=== PATIENT | female | born 1985 | race Caucasian/White ===

== ENCOUNTER 2021-02-21 14:10 | Outpatient (REF) | payer OTHER, SELFPAY | END 2021-02-21 14:11 | disposition home or self-care (01) | LOC: HO.LNP 14:10 | PROVIDERS: Visit Provider Hospitalist | DX: Z20.822 Contact with and (suspected) exposure to COVID-19 (principal); J45.901 Unspecified asthma with (acute) exacerbation | CPT/HCPCS: U0003; U0005 ==

== ENCOUNTER 2021-08-04 14:39 | Outpatient (REF) | payer OTHER, SELFPAY ==
--- NOTE | ~2021-08-04 | XR_ITS ---
EXAMINATION: XR CHEST CLINICAL INFORMATION: Covid 19 positive COMPARISON: Chest x-ray 04/22/2019 TECHNIQUE: 2 views of the chest were obtained. FINDINGS: No significant abnormality is noted involving the heart, lungs, mediastinum, bony thorax or soft tissues. XR/XR chest 2V IMPRESSION: Unremarkable examination.
== END 2021-08-04 14:40 | disposition home or self-care (01) ==
LOC: HO.XRAY 14:39
PROVIDERS: PCP Family Medicine; Visit Provider Hospitalist
DX: U07.1 COVID-19 (principal)
CPT/HCPCS: 71046

== ENCOUNTER 2021-09-01 08:53 | Outpatient (REF) | payer OTHER, SELFPAY ==
--- NOTE | ~2021-09-01 | XR_ITS ---
EXAMINATION: XR CHEST CLINICAL INFORMATION: Dyspnea COMPARISON: None TECHNIQUE: Frontal view of the chest was obtained. FINDINGS: No significant abnormality is noted involving the heart, lungs, mediastinum, bony thorax or soft tissues. XR/XR chest 1V IMPRESSION: Unremarkable chest examination.
== END 2021-09-01 08:54 | disposition home or self-care (01) ==
LOC: HO.XRAY 08:53
PROVIDERS: Visit Provider Hospitalist
DX: R06.09 Other forms of dyspnea (principal); U09.9 Post COVID-19 condition, unspecified; J45.40 Moderate persistent asthma, uncomplicated
CPT/HCPCS: 71045

== ENCOUNTER 2021-09-01 10:45 | Emergency (ER) | payer OTHER, SELFPAY ==
--- NOTE | ~2021-09-01 | CT_ITS ---
EXAMINATION: CT GI BLEED ABDOMEN PELVIS WITHOUT AND WITH CONTRAST. CLINICAL INFORMATION: Diarrhea and bright red blood per rectum COMPARISON: None TECHNIQUE: 5 minutes thin axial and reformatted 2 minutes thin sagittal coronal images of abdomen pelvis were obtained without and with following IV however mL Omnipaque 350. DLP 1983 FINDINGS: CTA: On contrast exam there is no extravasation seen within the colon on the small bowel loops to suspect any active source of GI bleed. Non-CTA: The lung bases are clear. The heart size is normal. The liver is normal size, contour and density. No focal lesion or intrahepatic ductal dilatation seen. The gallbladder has been surgically removed. Spleen: Unremarkable. Pancreas: Unremarkable. Adrenal glands: Unremarkable. Kidneys: Both kidney nephrograms are symmetrical in size and shape without any focal lesion. No radiopaque renal calculi or hydronephrosis seen. The abdominal aorta is of normal caliber. No abnormal size lymph nodes or mass seen. There are few scattered diverticula and scattered stool in the colon without diverticulitis or distention. The appendix is normal caliber. The small bowel loops are normal caliber. The stomach is nondistended. The abdominal wall appears unremarkable. Imaging through the pelvis reveals no contrast extravasation in the rectum or the sigmoid colon. The uterus is anteverted. There is a 1.7 cm left ovarian cyst. No free fluid seen. No abnormal pelvic mass or lymph nodes. Bone windows reveal no lytic or sclerotic process seen. CT/CT gi bleed abd pel wo/w con IMPRESSION: No contrast extravasation seen to suspect any source of GI bleed at this time. Minimal scattered colonic diverticulosis without diverticulitis. Small left ovarian cyst.
[2021-09-01 10:56] VITALS: BP 136/78; PULSE 81; RESP 18; TEMP 36.9; O2SAT 98; BMI 47.8
--- NOTE | 2021-09-01 14:17 | ED.GIBLEED ---
HPI - GI Bleed General Chief complaint: General Medical Stated complaint: rectal bleed Time Seen by Provider: 09/01/21 14:06 Source: patient Mode of arrival: ambulatory Limitations: no limitations History of Present Illness HPI Narrative: blood in bowl x 1 without BM, blood in bowl on toilet paper x 1 - 2 episodes today, no AC therapy, no ASA MD complaint: gross hematochezia Onset (ago): day(s) (this AM) Pain Consistency: colicky Severity: mild Relieving factors: none Exacerbating factors: bowel movement Context: other (has noted loose stools for 1+ month, nose bleeds, also mom has severe diverticulitis and aunt has Crohn's) Associated symptoms: abdominal pain and other bleeding (nose bleeds) Treatments Prior to Arrival: none Related Data Previous Rx's Medication Instructions Recorded albuterol sulfate 2.5 mg (3 mL) INHALATION Q4-6H PRN 08/26/20 30 Days #180 ml albuterol sulfate 90 mcg/actuation 2 puff INHALATION Q4-6H PRN 30 08/26/20 aerosol inhaler (Ventolin HFA) Days #8.5 g montelukast 10 mg tablet 10 mg PO DAILY 30 Days #30 tab 08/26/20 cyclobenzaprine 10 mg tablet 10 mg PO TID PRN 10 Days #30 tab 03/23/21 fluticasone propionate 230 2 puff INHALATION Q12H #12 g 07/21/21 mcg-salmeterol 21 mcg/actuation HFA inhaler (Advair HFA) prednisone 20 mg tablet 20 mg PO DAILY #12 tab 08/31/21 Allergies Allergy/AdvReac Type Severity Reaction Status Date / Time amoxicillin [Augmentin] Allergy Unknown Rash Verified 08/31/21 15:07 clavulanic acid [Augmentin] Allergy Unknown Rash Verified 08/31/21 15:07 gabapentin [From NEURONTIN] Allergy Unknown HIVES Verified 08/31/21 15:07 Review of Systems Review of Systems: Constitutional : No Weight loss, No Fever, No Chills ENT/Mouth : No sore throat, No Rhinorrhea Eyes: No Swelling, No Redness Cardiovascular : No Chest Pain, No SOB, NoEdema Respiratory : No Cough, No Sputum, No Wheezing Gastrointestinal : no Nausea,no Vomiting, positive Diarrhea, positive abdominal Pain, pos Hematochezia, No Melena Genitourinary : No Dysuria, No Urinary Frequency, No Hematuria, No Urgency Musculoskeletal : No joint pain, No Myalgias, No Joint Swelling Skin : No Skin Lesions, No rash Neuro : No Weakness, No Numbness, No Dizziness, No Headache Psych : No Anxiety/Panic, No Depression Heme/Lymph: No Bruising, No Lymphadenopathy Endocrine : No Polyuria, No Polydipsia All other systems reviewed and are negative. [facility] Past Medical History Medical History (Updated 09/01/21 @ 15:47 by Sue Quinonez DO) Asthma Post-COVID chronic dyspnea Surgical History History of cholecystectomy Family History Family History Father No problems noted. Mother No problems noted. Other Mental health disorder Substance use disorder Social History Social History Housing: House Alcohol intake: never Patient Tobacco Use Status: Never used Tobacco Second Hand Smoke Exposure: Yes Current occupational status: employed Physical Exam Vital Signs: Vital Signs: Last Vital Signs Temp 98.4 F 09/01/21 10:56 Pulse 81 09/01/21 10:56 Resp 18 09/01/21 10:56 BP 136/78 09/01/21 10:56 Pulse Ox 98 09/01/21 10:56 BMI result Body Mass Index 47.8 Appearance: Alert. Oriented X3. No acute distress. Eyes: Pupils equal, round and reactive to light. ENT: Pharynx normal. Neck: Normal inspection. Neck supple. CVS: Normal heart rate and rhythm. Pulses normal. Respiratory: No respiratory distress. Breath sounds normal. Abdomen: Soft and non-tender. Rectal: brb noted on digit, nonbleeding hemorrhoids seen, no mass felt Skin: Skin warm and dry. Normal skin color. Normal skin turgor. Extremities: No lower extremity edema. No calf ttp Neuro: Oriented X 3. No motor deficit. No sensory deficit. Course Course Course Narrative: labs stable, HR stable, BP stable - normal H/H and plts, pending CT read. signed out to Dr. العلي pending CT read. No bleeding while in ED. MDM - GI Bleed MDM Narrative Medical decision making narrative: 36 yo female with hx of asthma, long COVID symptoms, fam hx of Crohn's and sig diverticulitis in mom requiring colectomy comes in with c/o brbpr x 2 this AM without associated BM - no AC therapy or ASA use. At this time will need labs, CT scan for GIB protocol to look for mass/bleed/colitis. Dispo per results and findings. Lab Data Result diagrams: 09/01/21 14:22 09/01/21 14:22 Labs: Lab Results 09/01/21 09/01/21 09/01/21 Range/Units 14:22 14:22 14:22 WBC 10.9 H (4.8-10.8) X10*3/uL RBC 5.10 (4.20-5.50) X10*6/uL Hgb 13.3 (12.0-16.0) g/dl Hct 43.7 (37.0-47.0) % MCV 85.7 (80.0-98.0) fL MCH 26.1 L (27.0-33.0) pg MCHC 30.4 L (31.0-35.0) g/dl RDW 13.4 (11.0-16.0) % Plt Count 383 (160-400) X10*3/uL MPV 9.2 L (9.4-12.3) fL Immature Gran % (Auto) 0.4 (0.0-0.4) % Neut % (Auto) 59.5 (45-73) % Lymph % (Auto) 33.0 (20-40) % [place] % (Auto) 5.0 (2-11) % Eos % (Auto) 1.6 (0-4) % Baso % (Auto) 0.5 (0-2) % Lymph # (Auto) 3.6 (1.2-4.9) X10*3/uL [place] # (Auto) 0.6 (0.1-1.2) X10*3/uL Eos # (Auto) 0.2 (0.0-0.4) X10*3/uL Baso # (Auto) 0.1 (0.0-0.2) X10*3/uL Abs Immat Gran (auto) 0.04 H (0.00-0.03) X10*3/uL Absolute Neuts (auto) 6.5 (2.0-8.3) x10*3/uL Absolute Nucleated RBC 0.000 (0.0-0.012) X10*3/uL Nucleated RBC % (auto) 0.0 (0.0-0.2) /100WBC PT (9.9-13.0) SEC INR (0.9-1.1) Sodium (135-145) mmol/L Potassium (3.3-5.1) mmol/L Chloride (96-108) mmol/L Carbon Dioxide (22-29) mmol/L Anion Gap (12-20) BUN (9-16) mg/dL Creatinine (0.5-1.4) mg/dL Estim Creat Clear Calc Estimated GFR Random Glucose (60-115) mg/dL Calcium (8.4-10.2) mg/dL Magnesium (1.6-2.6) mg/dL Total Bilirubin (0.0-1.0) mg/dL Direct Bilirubin (0.0-0.5) mg/dL AST (5-31) U/L ALT (0-31) U/L Alkaline Phosphatase (39-117) U/L Total Protein (6.5-8.0) g/dL Albumin (3.5-5.0) g/dL Urine Color YELLOW Urine Appearance HAZY Urine pH 5.5 (5.0-8.0) Ur Specific [place] >= 1.030 H (1.005-1.025) Urine Protein NEG (NEG-TRACE) MG/DL Urine Glucose (UA) NEG (NEG) MG/DL Urine Ketones NEG (NEG) MG/DL Urine Blood 3+ H (NEG) Urine Nitrite NEG (NEG) Ur Leukocyte Esterase NEG (NEG) Urine RBC 5-9 H (0) /HPF Urine WBC 0 (0-4) /HPF Ur Squamous Epith Cells 2+ /LPF Urine Bacteria 1+ /LPF Urine Test NEGATIVE (NEGATIVE) Stool Occult Blood (NEGATIVE) 09/01/21 09/01/21 09/01/21 Range/Units 14:22 14:22 14:45 WBC (4.8-10.8) X10*3/uL RBC (4.20-5.50) X10*6/uL Hgb (12.0-16.0) g/dl Hct (37.0-47.0) % MCV (80.0-98.0) fL MCH (27.0-33.0) pg MCHC (31.0-35.0) g/dl RDW (11.0-16.0) % Plt Count (160-400) X10*3/uL MPV (9.4-12.3) fL Immature Gran % (Auto) (0.0-0.4) % Neut % (Auto) (45-73) % Lymph % (Auto) (20-40) % [place] % (Auto) (2-11) % Eos % (Auto) (0-4) % Baso % (Auto) (0-2) % Lymph # (Auto) (1.2-4.9) X10*3/uL [place] # (Auto) (0.1-1.2) X10*3/uL Eos # (Auto) (0.0-0.4) X10*3/uL Baso # (Auto) (0.0-0.2) X10*3/uL Abs Immat Gran (auto) (0.00-0.03) X10*3/uL Absolute Neuts (auto) (2.0-8.3) x10*3/uL Absolute Nucleated RBC (0.0-0.012) X10*3/uL Nucleated RBC % (auto) (0.0-0.2) /100WBC PT 11.8 (9.9-13.0) SEC INR 1.0 (0.9-1.1) Sodium 138 (135-145) mmol/L Potassium 4.0 (3.3-5.1) mmol/L Chloride 104 (96-108) mmol/L Carbon Dioxide 24 (22-29) mmol/L Anion Gap 14 (12-20) BUN 12 (9-16) mg/dL Creatinine 0.71 (0.5-1.4) mg/dL Estim Creat Clear Calc 136.3 Estimated GFR > 60 Random Glucose 97 (60-115) mg/dL Calcium 9.3 (8.4-10.2) mg/dL Magnesium 2.1 (1.6-2.6) mg/dL Total Bilirubin 0.4 (0.0-1.0) mg/dL Direct Bilirubin < 0.2 (0.0-0.5) mg/dL AST 18 (5-31) U/L ALT 17 (0-31) U/L Alkaline Phosphatase 69 (39-117) U/L Total Protein 7.5 (6.5-8.0) g/dL Albumin 4.0 (3.5-5.0) g/dL Urine Color Urine Appearance Urine pH (5.0-8.0) Ur Specific [place] (1.005-1.025) Urine Protein (NEG-TRACE) MG/DL Urine Glucose (UA) (NEG) MG/DL Urine Ketones (NEG) MG/DL Urine Blood (NEG) Urine Nitrite (NEG) Ur Leukocyte Esterase (NEG) Urine RBC (0) /HPF Urine WBC (0-4) /HPF Ur Squamous Epith Cells /LPF Urine Bacteria /LPF Urine Test (NEGATIVE) Stool Occult Blood POSITIVE (NEGATIVE) Discharge Plan Discharge Clinical Impression: Acute lower gastrointestinal bleeding Patient Disposition: Still a Patient Prescriptions: No Action cyclobenzaprine 10 mg tablet 10 mg PO TID PRN (Reason: muscle spasm) 10 Days Qty: 30 0RF albuterol sulfate [Ventolin HFA] 90 mcg/actuation HFA aerosol inhaler 2 puff inhalation Q4-6H PRN (Reason: Cough, wheeze) 30 Days Qty: 8.5 6RF montelukast 10 mg tablet 10 mg PO DAILY 30 Days Qty: 30 6RF albuterol sulfate 2.5 mg /3 mL (0.083 %) solution for nebulization 2.5 mg inhalation Q4-6H PRN (Reason: Cough, wheeze) 30 Days Qty: 180 0RF Advair HFA 230-21 mcg/actuation HFA aerosol inhaler 2 puff inhalation Q12H Qty: 12 0RF prednisone 20 mg tablet 20 mg PO DAILY Qty: 12 0RF Rx Instructions: take 3 for 2 days 2 for 2 days 1 for 2 days and stop
[2021-09-01 14:30] LABS: MANUAL DIFF FLAG NO
[2021-09-01 14:36] LABS: Basophils Absolute Auto 0.1 X10*3/uL (0.0-0.2); Basophils Percent Auto 0.5 % (0-2); Eosinophils Absolute Auto 0.2 X10*3/uL (0.0-0.4); Eosinophils Percent Auto 1.6 % (0-4); Hematocrit 43.7 % (37.0-47.0); Hemoglobin 13.3 g/dl (12.0-16.0); Imm Gran Abs Auto 0.04 X10*3/uL (0.00-0.03); Imm Gran Pct Auto 0.4 % (0.0-0.4); Lymphocytes Absolute Auto 3.6 X10*3/uL (1.2-4.9); Mean Corpuscular HGB Conc 30.4 g/dl (31.0-35.0); Mean Corpuscular Hemoglobin 26.1 pg (27.0-33.0); Mean Corpuscular Volume 85.7 fL (80.0-98.0); Mean Platelet Volume 9.2 fL (9.4-12.3); Monocytes Absolute Auto 0.6 X10*3/uL (0.1-1.2); Neutrophils Absolute Auto 6.5 x10*3/uL (2.0-8.3); Neutrophils Percent Auto 59.5 % (45-73); OBS1 POSITIVE (NEGATIVE); Platelet Count 383 X10*3/uL (160-400); Red Cell Distribution Width 13.4 % (11.0-16.0); White Blood Count 10.9 X10*3/uL (4.8-10.8)
[2021-09-01 14:37] LABS: OBS Int Ctl Valid YES
[2021-09-01 14:52] LABS: Alanine Aminotransferase 17 U/L (0-31); Alkaline Phosphatase 69 U/L (39-117); Anion Gap 14 (12-20); Aspartate Amino Transferase 18 U/L (5-31); Bilirubin Direct < 0.2 mg/dL (0.0-0.5); Bilirubin Total 0.4 mg/dL (0.0-1.0); Blood Urea Nitrogen 12 mg/dL (9-16); Calcium 9.3 mg/dL (8.4-10.2); Carbon Dioxide 24 mmol/L (22-29); Chloride 104 mmol/L (96-108); Creatinine Clr Calc Pharmacy 136.3; Estimated Glomerular Filt Rate > 60; Glucose Random 97 mg/dL (60-115); Magnesium 2.1 mg/dL (1.6-2.6); Sodium 138 mmol/L (135-145); Total Protein 7.5 g/dL (6.5-8.0)
[2021-09-01 14:55] LABS: Prothrombin Time 11.8 SEC (9.9-13.0)
[2021-09-01 15:08] LABS: Appearance Urine HAZY; Color Urine YELLOW; Glucose Urine UA NEG (NEG); Leukocyte Esterase Urine NEG (NEG); Nitrite Urine NEG (NEG); PH 5.5 (5.0-8.0); Specific Gravity - Urine >= 1.030 (1.005-1.025); UACC Culture Trigger NO; Urine Blood 3+ (NEG); Urine Ketones NEG (NEG); Urine Protein NEG (NEG-TRACE)
[2021-09-01 15:09] LABS: UPreg QC Valid YES; Urine Pregnancy NEGATIVE (NEGATIVE)
[2021-09-01 15:13] LABS: Bacteria Urine 1+ /LPF; Squamous Epithelial Cell Urine 2+ /LPF; WBC Urine 0 /HPF (0-4)
[2021-09-01] MEDS: iohexoL 350 MG/ML 100 ML INFUS..BTL IV (15:31)
[2021-09-01 17:01] VITALS: BP 132/88; PULSE 88; RESP 18; TEMP 36.6; O2SAT 97
== END 2021-09-01 17:02 | disposition home or self-care (01) ==
PROVIDERS: Emergency Medicine; Emergency Provider Emergency Medicine; PCP Hospitalist
DX: K62.5 Hemorrhage of anus and rectum (principal); R10.84 Generalized abdominal pain
CPT/HCPCS: 36415; 74178; 80048; 80076; 81001; 81025; 82272; 83735; 85025; 85610; 96360; 99283; 99284; Q9967

== ENCOUNTER 2021-09-07 15:31 | Outpatient (REF) | payer OTHER, SELFPAY | END 2021-09-07 15:32 | disposition home or self-care (01) | LOC: HO.LAB 15:31 | PROVIDERS: PCP Hospitalist; Visit Provider Internal Medicine Pulmonary Disease | DX: Z91.09 Other allergy status, other than to drugs and biological substances (principal); J45.909 Unspecified asthma, uncomplicated; U09.9 Post COVID-19 condition, unspecified | CPT/HCPCS: 36415; 82785; 85025; 86003; 99212 ==

== ENCOUNTER 2021-09-28 14:58 | Outpatient (REF) | payer OTHER, SELFPAY ==
--- NOTE | ~2021-09-28 | CT_ITS ---
EXAMINATION: CT CHEST WITHOUT CONTRAST CLINICAL INFORMATION: Post Covid 19 condition COMPARISON: None TECHNIQUE: Multidetector volumetric CT imaging of the chest was done. Axial MIP volume rendering provided. Sagittal and coronal reformatted images were obtained. This CT examination was performed using dose optimization techniques as appropriate, variously including the following: *Automated exposure control *Adjustment of mA and/or kV according to patient size (this includes techniques or standardized protocols for targeted exams where dose is matched to indication/reason for exam; i.e. extremities or head) *Use of iterative reconstruction technique DLP: 563 mGy-cm FINDINGS: MOTOR VEHICLES INSPECTOR: Unremarkable LUNGS: There is right upper lobe 0.25 cm nodule seen on image 19 series 3. MEDIASTINUM: The mediastinum is normal. PLEURA: There is no pleural effusion. No pleural mass or thickening. AXILLA: No lymphadenopathy. UPPER ABDOMEN: Gallbladder is surgically absent OSSEOUS STRUCTURES: Unremarkable. CT/CT chest wo con IMPRESSION: 0.25 cm right upper lobe nodule. Fleischner guidelines were followed.
== END 2021-09-28 14:59 | disposition home or self-care (01) ==
LOC: HO.CT 14:58
PROVIDERS: PCP Hospitalist; Visit Provider Internal Medicine Pulmonary Disease
DX: U09.9 Post COVID-19 condition, unspecified (principal)
CPT/HCPCS: 71250

== ENCOUNTER 2022-04-18 12:10 | Outpatient (REF) | payer OTHER, SELFPAY ==
--- NOTE | ~2022-04-18 | XR_ITS ---
EXAMINATION: XR CHEST CLINICAL INFORMATION: Acute upper respiratory infection. COMPARISON: September 01, 2021. TECHNIQUE: 2 views of the chest were obtained. FINDINGS: No significant abnormality is noted involving the heart, lungs, mediastinum, bony thorax or soft tissues. Status post cholecystectomy. XR/XR chest 2V IMPRESSION: Unremarkable examination.
== END 2022-04-18 12:11 | disposition home or self-care (01) ==
LOC: HO.HMGCX 12:10
PROVIDERS: PCP Hospitalist; Visit Provider Physician Assistant
DX: Z20.822 Contact with and (suspected) exposure to COVID-19 (principal); J06.9 Acute upper respiratory infection, unspecified
CPT/HCPCS: 0241U; 71046

== ENCOUNTER 2022-04-18 12:47 | Outpatient (REF) | payer OTHER, SELFPAY ==
[2022-04-18 16:49] LABS: Influenza A PCR NEGATIVE (Negative); Influenza B PCR NEGATIVE (Negative); Resp Syncy Virus RNA Qual PCR POSITIVE (Negative); SARS COV2 PCR INHOUSE NEGATIVE (Negative)
== END 2022-04-18 12:48 | disposition home or self-care (01) ==
LOC: HO.LAB 12:47
PROVIDERS: Visit Provider Physician Assistant
DX: Z13.89 Encounter for screening for other disorder (principal)
CPT/HCPCS: 0241U

== ENCOUNTER 2022-05-23 13:55 | Outpatient (REF) | payer OTHER, SELFPAY ==
[2022-05-24 12:02] LABS: Influenza A PCR NEGATIVE (Negative); Influenza B PCR NEGATIVE (Negative); Resp Syncy Virus RNA Qual PCR NEGATIVE (Negative); SARS COV2 PCR INHOUSE POSITIVE (Negative)
== END 2022-05-23 13:56 | disposition home or self-care (01) ==
LOC: HO.LAB 13:55
PROVIDERS: Visit Provider Nurse Practitioner Family
DX: R09.89 Other specified symptoms and signs involving the circulatory and respiratory systems (principal); Z20.822 Contact with and (suspected) exposure to COVID-19
CPT/HCPCS: 0241U

== ENCOUNTER 2023-05-08 10:10 | Outpatient (AMB) | payer OTHER, SELFPAY ==
[2023-05-08 11:07] VITALS: BP 126/70; PULSE 90; TEMP 37.2; O2SAT 98; BMI 47.2
--- NOTE | 2023-05-08 11:07 | MHC.OFFWIV ---
Intake Vital Signs 05/08/23 11:07 Height 5 ft 3 in Weight 266 lb 6 oz BMI 47.2 BP 126/70 Blood Pressure Location Rt brachial Position Sitting Pulse 90 Pulse Source Pulse Oximeter Temp 99.0 F Temp Source Oral Pulse Oximetry (%) 98 Intake Visit Reasons: EP Throat/ear concern/back pain (Masked) Intake Note: pt is here for c.o sore throat, ear discomfort, back pain Patient Tobacco Use Status: Never used Tobacco Allergies clavulanic acid [Augmentin] Allergy (Unknown, Verified 05/08/23 11:07) Rash gabapentin [From NEURONTIN] Allergy (Unknown, Verified 05/08/23 11:07) HIVES Do you need a note to return to daycare/school/sports/work: Yes HPI HPI Comments History of Present Illness Details Patient is a 37-year-old female in today for a sick visit. Patient states for the past 3 days she has had fever, sore throat, headache, and ear pain. 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 She has a past medical history significant for asthma. She has used [id number] Motrin with good effect. Denies shortness of breath, chest pain, nausea, vomiting, diarrhea or mastoid tenderness. Patient's head is normocephalic. Right TM is visible bulging and erythematous. Left ear is visible bulging and erythematous. Patient has sinus tenderness. Tonsils have erythema and are +2. Postnasal drip present. Patient has full range of motion of the neck the flexion, extension, and rotation. There is no lymphadenopathy. Lung sounds clear bilaterally. Heart sounds normal with S1 and S2, no rubs/gallops/murmurs. Patient likely has otitis media bilaterally. This is unlikely to be mastoiditis, or TM rupture. Patient will be prescribed Bactrim to be taken as directed. Patient had in office upper respiratory swab will get back to patient with results when they are made available. She has been instructed to use [id number] medicine like Tylenol and Motrin for symptom relief. Can use throat lozenges or hot tea for sore throat. She has been instructed to drink plenty of water. She has been educated on signs of worsening symptoms of when to return to the emergency room or when to present back to the walk-in clinic. Patient is agreeable to this plan. [facility] Medical History (Updated 05/08/23 @ 11:54 by KYE Crow) Bilateral otitis media Post-COVID chronic dyspnea Asthma Surgical History History of cholecystectomy Family History Father No problems noted. Mother No problems noted. Other Mental health disorder Substance use disorder Housing: House Alcohol intake: never Patient Tobacco Use Status: Never used Tobacco Second Hand Smoke Exposure: Yes Current occupational status: employed Review of Systems Const All systems reviewed & are unremarkable except as noted in HPI and below Reports headache(s) Eyes Denies blurry vision and Denies eye discharge ENT Reports Normal hearing present, Denies vertigo, Reports otalgia, Reports headache(s), Denies hearing loss, Denies nasal discharge and Denies neck pain Card Denies chest pain and Denies dyspnea Resp Denies chest congestion, Denies dyspnea and Denies wheezing GI Denies diarrhea, Denies nausea and Denies vomiting Musc Reports myalgias, Denies neck pain and Denies numbness Neuro Reports Normal hearing present, Denies confusion, Denies vertigo, Reports headache(s) and Denies numbness Psych Denies confusion Aller/Immun Denies wheezing Physical Exam Vital Signs: Last Vital Signs Temp 99.0 F 05/08/23 11:07 Pulse 90 05/08/23 11:07 BP 126/70 05/08/23 11:07 Pulse Ox 98 05/08/23 11:07 BMI result Body Mass Index 47.2 Patient's vital signs have been reviewed and are stable Const General: cooperative and no acute distress; No confusion Orientation/consciousness: patient oriented x3 and No confusion Limitations: no limitations HEENT Head: Yes normal to inspection and Yes normocephalic Ears: TM abnormal bulging, wth effusion and erythematous General nose exam: Normal external nose present Face and sinus: Yes sinus tenderness Throat: Yes abnormal tonsil (Tonsils +2.) and Yes cobblestoning Eyes General: appearance normal, both eyes and all related structures Neck Neck: Yes normal visual inspection, Yes full ROM, Yes no lymphadenopathy, Yes no meningeal signs and Yes trachea midline Resp Effort & Inspection: normal respiratory effort Auscultation: clear to auscultation bilaterally Cardio Rate: regular rate Rhythm: regular rhythm Heart sounds: S1 normal heart sound present and S2 normal heart sound present Neuro General: patient oriented x3, no meningeal signs and No confusion Cranial nerves: Yes Normal hearing present Results AMB Rapid Strep AMB Rapid Strep Negative Last Edit by Tobin Jones CMA on 05/08/23 11:25 Results Reviewed Results Reviewed: Laboratory Last Values Strep Scn Rapid Clinic Negative 05/08/23 11:24 Will call patient with swab results Assessment & Plan Assessment & Plan (1) Bilateral otitis media: Comment: Patient will be given Bactrim to be taken as prescribed. She has been educated to take the entire course of the medication and common side effects associated with the medication. She has also been instructed to use yjfl-kew-pebrliz medication like Tylenol and Motrin for symptom relief. She has been educated on signs of worsening symptoms of when to return to the walk-in or when to present to the emergency room. Patient is agreeable to this plan. Code(s): H66.93 - Otitis media, unspecified, bilateral Qualifiers: Otitis media type: unspecified Qualified Code(s): H66.93 - Otitis media, unspecified, bilateral Orders: Orders SARS-CoV2/FLU/RSV Today J06.9 - Acute upper respiratory infection, unspecified AMB Rapid Strep Screen Today Z13.9 - Encounter for screening, unspecified Coding Level of Care Code Est Pt Level 3 (35190) Diagnoses Bilateral otitis media, unspecified otitis media type H66.93 Otitis media type: unspecified Time Spent (min) 15
== END 2023-05-08 12:38 | disposition home or self-care (01) ==
PROVIDERS: PCP Hospitalist; Visit Provider Nurse Practitioner Primary Care
DX: J02.9 Acute pharyngitis, unspecified (principal)
CPT/HCPCS: 87880; 99213

== ENCOUNTER 2023-05-08 11:28 | Outpatient (REF) | payer OTHER, SELFPAY ==
[2023-05-08 15:29] LABS: Influenza A PCR NEGATIVE (Negative); Influenza B PCR NEGATIVE (Negative); Resp Syncy Virus RNA Qual PCR NEGATIVE (Negative); SARS COV2 PCR INHOUSE NEGATIVE (Negative)
== END 2023-05-08 11:29 | disposition home or self-care (01) ==
LOC: HO.LNP 11:28
PROVIDERS: Visit Provider Nurse Practitioner Primary Care
DX: Z11.52 Encounter for screening for COVID-19 (principal); J06.9 Acute upper respiratory infection, unspecified
CPT/HCPCS: 0241U

== ENCOUNTER 2023-05-24 08:00 | Outpatient (AMB) | payer OTHER, SELFPAY ==
--- NOTE | 2023-05-24 08:03 | MHC.PC.OV ---
Vital Signs 05/24/23 08:06 Height 5 ft 3 in Weight 271 lb BMI 48.0 BP 110/70 Blood Pressure Location Rt brachial Position Sitting Pulse 73 Pulse Source Pulse Oximeter Pulse Oximetry (%) 98 Oxygen Delivery Method Room Air Intake Visit Reasons: Est care/Requesting Annual PE Intake Note: Patient here for physical exam and would like to talk about back pain and elbow pain. Allergies clavulanic acid [Augmentin] Allergy (Unknown, Verified 05/24/23 08:14) Rash gabapentin [From NEURONTIN] Allergy (Unknown, Verified 05/24/23 08:14) HIVES Medication List - Last Reconciled 05/24/23 by KYE Crow Advair Diskus 500-50 mcg/dose (fluticasone propion-salmeterol) 1 inh inhalation BID 30 days NS albuterol sulfate 90 mcg/actuation (Ventolin HFA) 2 puffs inhalation Q4-6H PRN 30 days ipratropium-albuterol 0.5 mg-3 mg(2.5 mg base)/3 mL 3 mL inhalation Q4-6H PRN 30 days Tobacco use date assessed: 05/24/23 Dental Screening Dental Screen Date: 05/24/23 Did you have a dental visit in the last 12 months?: No Did you have a dental problem in the last 6 months where you did not have access to dental care?: No Was dental information given to patient?: Patient has dentist HPI HPI Comments History of Present Illness Details Patient is a 38-year-old female here today to establish care and have her annual physical exam. She has a past medical history significant for asthma which is well controlled. She has an established OBGYN whom she last saw 2 years ago, is due for another well-woman visit. She does not want this year's influenza vaccine or COVID booster. She is due for her mammogram. She has a chief complaint of lower back pain, and pain to her bilateral elbows. 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 She denies having any trauma to the area. She takes Tylenol or Motrin with good effect. Denies any tingling or numbness. [facility] Medical History (Updated 05/24/23 @ 09:37 by KYE Crow) Environmental allergies Asthma, mild intermittent, poorly controlled Cervicalgia Bilateral otitis media Post-COVID chronic dyspnea Asthma Surgical History History of cholecystectomy Family History (Updated 05/24/23 @ 08:21 by KYE Crow) Father Diabetes mellitus type 2 with complications Mother Diabetes mellitus type 2 with complications Other Mental health disorder Substance use disorder Social History Housing: House Alcohol intake: never Patient Tobacco Use Status: Never used Tobacco e-Cigarette/Vaping Use: Never Used Second Hand Smoke Exposure: Yes Current occupational status: employed Cognitive needs: No Hearing needs: No Vision needs: No Questionnaire PHQ-9 Over the last 2 weeks, how often have you been bothered by any of the following problems? 1. Little interest or pleasure in doing things: not at all 2. Feeling down, depressed, or hopeless: not at all 3. Trouble falling or staying asleep, or sleeping too much: several days 4. Feeling tired or having little energy: several days 5. Poor appetite or overeating: not at all 6. Feeling bad about yourself - or that you are a failure or have let yourself or your family down: not at all 7. Trouble concentrating on things, such as reading the newspaper or watching television: not at all 8. Moving or speaking so slowly that other people could have noticed. Or the opposite - being so fidgety or restless that you have been moving around a lot more than usual: not at all 9. Thoughts that you would be better off or of hurting yourself in some way: not at all Total score: 2 Depression Screening Interpretation: Negative Depression Screening Done: Yes 05290 - PHQ-9 Billing: Yes Source: Developed by Drs. Owen Fabian, Deloris White, Basil Poe and colleagues, with an educational ender from [employer]. Thrive Questionnaire Date Thrive assessed: 05/24/23 I am a: Patient What is your living situation today?: I have a place to live, but I am worried about losing it in the future Within the past 12 months, did the food you bought not last and you didn't have the money to get more?: Sometimes True Within the past 12 months, did you worry whether your food would run out before you got money to buy more?: Sometimes True Do you have trouble paying for medicines?: No Do you have trouble getting transportation to medical appointments?: No Do you have trouble paying your heating and electricity bill?: Yes Do you have trouble taking care of your child, family member or friend?: No Do you have trouble with day-to-day activities such as bathing, preparing meals, shopping, managing finances, etc.?: No Are you currently unemployed and looking for a job?: No Are you interested in more education?: No AUDIT C Alcohol Use Questionnaire (AUDIT-C) 1. How often do you have a drink containing alcohol?: Never 3. How often do you have six or more drinks on one occasion?: Never Total Score: 0 Score Reviewed/Action Taken: No ARLETH-7 AMB Questionnaire ARLETH-7 Date ARLETH - 7 assessed: 05/24/23 Source: Developed by Drs. Owen Fabian, Deloris White, Basil Poe and colleagues, with an educational ender from [employer]. ARLETH-7 Assessment Billing ARLETH-7 Assessment Tool: pt declined-do not bill Review of Systems Const Details: Constitutional : No Weight loss, No Fever, No Chills, No Fatigue, No Malaise ENT/Mouth : No sore throat, No Rhinorrhea Eyes: No Eye Pain, No Swelling, No Redness Cardiovascular : No Chest Pain, No SOB, No Dyspnea on Exertion, No Orthopnea, No Edema, No Palpitations Respiratory : No Cough, No Sputum, No Wheezing Gastrointestinal : No Nausea, No Vomiting, Occasional Diarrhea, No Constipation, No abdominal Pain, No Hematochezia, No Melena Genitourinary : No Dysuria, No Urinary Frequency, No Hematuria, Musculoskeletal : Admits intermittent lower back pain and Bilateral elbow pain. Skin : No Skin Lesions, No rash Neuro : No Weakness, No Numbness, No Dizziness, No Headache Psych : No Anxiety/Panic, No Depression Heme/Lymph: No Bruising, No Bleeding,No Lymphadenopathy Endocrine : No Polyuria, No Polydipsia All other systems reviewed and are negative Physical exam (Primary Care) Vital Signs: Last Vital Signs Pulse 73 05/24/23 08:06 BP 110/70 05/24/23 08:06 Pulse Ox 98 05/24/23 08:06 Oxygen Delivery Method Room Air 05/24/23 08:06 Care Plan Goal for BP management: Vital signs reviewed and are stable. BMI result Body Mass Index 48.0 Tobacco/Smoking Status: Tobacco use Status Tobacco use date assessed 05/24/23 05/24/23 08:10 Patient Tobacco Use Status Never used Tobacco 05/24/23 08:05 e-Cigarette/Vaping Use Never Used 05/24/23 08:10 Depression Screening Interpretation: Negative Const General: cooperative and no acute distress Orientation/consciousness: patient oriented x3 Limitations: no limitations HENMT Head: Yes normal to inspection and Yes normocephalic Ears: TM's normal bilaterally General nose exam: Normal external nose present and Normal septum present Face and sinus: Yes normal facial exam Mouth: Normal oral and palatal mucosa present Eyes Conjunctivae: conjunctivae normal Sclerae: sclerae normal Pupils: Equal, round and reactive pupils present EOM: EOMs intact bilaterally Direct Ophthalmoscopy: normal light reflex and no photophobia Neck Neck: Yes normal visual inspection, Yes full ROM and Yes no lymphadenopathy Thyroid: Thyroid normal Lymphatic: no lymphadenopathy noted Chest Other: Declined breast exam Resp Auscultation: clear to auscultation bilaterally Cardio Rate: regular rate Rhythm: regular rhythm Heart sounds: S1 normal heart sound present and S2 normal heart sound present GI Inspection: Yes normal to inspection Palpation (GI): nontender General: Yes no CVA tenderness and Yes deferred Back/Spine/Pelvis Back: no CVA tenderness Thoracic/Lumbar Spine: paraspinal muscle tenderness Skin General skin exam: no rashes or lesions noted Neuro General: patient oriented x3 and CN's II-XI intact bilaterally Cranial nerves: Yes Equal, round and reactive pupils present Gait exam (Neuro): Normal gait present Motor exam (neuro): 5/5 motor strength present throughout Deep tendon reflexes (DTR's): Right patellar reflex intensity grade: 2+ and Left patellar reflex intensity grade: 2+ Romberg Test: Negative Extrem Right upper extremity: full ROM and elbow/forearm Details: tenderness Location: of the medial epicondyle; no edema and joint enlargement noted Left upper extremity: full ROM and elbow/forearm Details: tenderness Location: of the medial epicondyle; no edema and joint enlargement noted Psych Attitude: cooperative Thought process: Normal thought process present Thought content: Normal thought content present Insight: Good insight present (Psych) Judgement: Good judgement present (Psych) Results Reviewed Results Reviewed: Will call patient with lab results. Assessment and Plan Assessment & Plan (1) Encounter for routine adult physical exam with abnormal findings: Comment: Will draw labs CBC, CMP, TSH, T4, lipid profile, vitamin D3, vitamin B6, vitamin B12 UA Code(s): Z00. - Encounter for general adult medical examination with abnormal findings (2) Lower back pain: Comment: Patient will have x-ray. Been instructed not to overuse the affected joint. She has been educated on proper ergonomic. Has been given meloxicam to help with pain and inflammation. Code(s): M54.50 - Low back pain, unspecified Qualifiers: Back pain laterality: bilateral Chronicity: unspecified Sciatica presence: unspecified whether sciatica present Qualified Code(s): M54.50 - Low back pain, unspecified (3) Medial epicondylitis of both elbows: Comment: Patient has been educated that this is often an overuse injury. That she should rest the affected joints, use ice pack. She can utilize elbow brace. Can use Tylenol or NSAID. Instructed not to combine NSAID with meloxicam. Educated on side effects of the medication. Code(s): M77.01 - Medial epicondylitis, right elbow; M77.02 - Medial epicondylitis, left elbow Plan: Will follow-up patient with x-ray results. Orders: Orders Lipid Panel Today Z00. - Encounter for general adult medical examination with abnormal findings Complete Blood Count Auto Diff Today Z00. - Encounter for general adult medical examination with abnormal findings UA CC w/rflx Micro + Cult Today Z00. - Encounter for general adult medical examination with abnormal findings Vitamin D 25-OH (D2 and D3) Today Z00. - Encounter for general adult medical examination with abnormal findings Vitamin B6 Today Z00. - Encounter for general adult medical examination with abnormal findings MM tomosynthesis screening BI Today Z00. - Encounter for general adult medical examination with abnormal findings XR lumbar spine 2-3V Today M54.50 - Low back pain, unspecified Comprehensive [place]. Panel Fast Today Z. - Encounter for general adult medical examination with abnormal findings TSH reflex Free T4 Today Z00. - Encounter for general adult medical examination with abnormal findings Vitamin B12 Today Z00.01 - Encounter for general adult medical examination with abnormal findings Medications: New meloxicam 15 mg PO DAILY 7 tabs 0RF Coding Level of Care Code Est Pt Level 3 (67373) Diagnoses Encounter for routine adult physical exam with abnormal findings Z00.01 Bilateral low back pain, unspecified chronicity, unspecified whether sciatica present M54.50 Back pain laterality: bilateral Chronicity: unspecified Sciatica presence: unspecified whether sciatica present Medial epicondylitis of both elbows M77.01; M77.02 Time Spent (min) 30
[2023-05-24 08:06] VITALS: BP 110/70; PULSE 73; O2SAT 98; BMI 48.0
== END 2023-05-24 08:39 | disposition home or self-care (01) ==
PROVIDERS: PCP Hospitalist; Visit Provider Nurse Practitioner Primary Care
DX: Z00.01 Encounter for general adult medical examination with abnormal findings (principal); M54.50 Low back pain, unspecified; M77.01 Medial epicondylitis, right elbow; M77.02 Medial epicondylitis, left elbow; Z04.3 Encounter for examination and observation following other accident
CPT/HCPCS: 99213; 99396

== ENCOUNTER 2023-05-24 08:43 | Outpatient (REF) | payer OTHER, SELFPAY ==
[2023-05-24 11:32] LABS: MANUAL DIFF FLAG NO
[2023-05-24 12:03] LABS: Basophils Absolute Auto 0.1 X10*3/uL (0.0-0.2); Basophils Percent Auto 0.6 % (0-2); Eosinophils Absolute Auto 0.2 X10*3/uL (0.0-0.4); Eosinophils Percent Auto 1.8 % (0-4); Hemoglobin 13.4 g/dl (12.0-16.0); Imm Gran Abs Auto 0.04 X10*3/uL (0.00-0.03); Imm Gran Pct Auto 0.4 % (0.0-0.4); Lymphocytes Absolute Auto 3.1 X10*3/uL (1.2-4.9); Lymphocytes Percent Auto 31.5 % (20-40); Mean Corpuscular HGB Conc 31.2 g/dl (31.0-35.0); Mean Corpuscular Hemoglobin 26.4 pg (27.0-33.0); Mean Corpuscular Volume 84.6 fL (80.0-98.0); Mean Platelet Volume 10.1 fL (9.4-12.3); Monocytes Absolute Auto 0.4 X10*3/uL (0.1-1.2); Monocytes Percent Auto 4.3 % (2-11); Neutrophils Percent Auto 61.4 % (45-73); Platelet Count 350 X10*3/uL (160-400); Red Blood Count 5.08 X10*6/uL (4.20-5.50); Red Cell Distribution Width 13.4 % (11.0-16.0); White Blood Count 9.8 X10*3/uL (4.8-10.8)
[2023-05-24 12:04] LABS: Appearance Urine Clear; Color Urine Yellow; Glucose Urine UA Negative (Negative); Leukocyte Esterase Urine Negative (Negative); Nitrite Urine Negative (Negative); UMIC TRIGGER UACC YES; Urine Blood Moderate (2+) (Negative); Urine Ketones Negative (Negative); Urine Protein Negative (Neg-Trace)
[2023-05-24 12:09] LABS: Bacteria Urine Trace (None Seen); Hyaline Casts Urine 0-2 /LPF (0-2); WBC Urine 0-5 /HPF (0-5)
[2023-05-24 12:28] LABS: Vitamin B12 336 pg/mL (200-900)
[2023-05-24 12:34] LABS: Alanine Aminotransferase 11 U/L (0-31); Albumin Level 3.7 g/dL (3.5-5.0); Alkaline Phosphatase 67 U/L (39-117); Anion Gap 14 (12-20); Aspartate Amino Transferase 14 U/L (5-31); Bilirubin Total 0.4 mg/dL (0.0-1.0); Blood Urea Nitrogen 14 mg/dL (9-16); Calcium 9.1 mg/dL (8.4-10.2); Carbon Dioxide 25 mmol/L (22-29); Chloride 102 mmol/L (96-108); Cholesterol 175 mg/dL (<200); Estimated Glomerular Filt Rate > 60; Glucose Fasting 93 mg/dL (60-99); HDL Cholesterol 63 mg/dL (>40); LDL Cholesterol Calculated 99 mg/dL (<100); Potassium 3.9 mmol/L (3.3-5.1); Sodium 137 mmol/L (135-145); Total Protein 7.2 g/dL (6.5-8.0); Triglycerides 66 mg/dL (<150)
[2023-05-24 12:36] LABS: TSH reflex Free T4 1.97 uIU/mL (0.32-4.0)
[2023-05-28 12:24] LABS: Vitamin B6 4.2 ng/mL (2.1-21.7)
[2023-05-28 15:09] LABS: Vitamin D 25-OH, D2 <4 ng/mL; Vitamin D 25-OH, D3 16 ng/mL; Vitamin D 25-OH, Total 16 ng/mL (30-100)
== END 2023-05-24 08:44 | disposition home or self-care (01) ==
LOC: HO.HMGCLDS 08:43
PROVIDERS: PCP Nurse Practitioner Primary Care; Visit Provider Nurse Practitioner Primary Care
DX: Z00.01 Encounter for general adult medical examination with abnormal findings (principal)
CPT/HCPCS: 36415; 80053; 80061; 81001; 81003; 82306; 82607; 84207; 84443; 85025

== ENCOUNTER 2023-06-20 11:07 | Outpatient (AMB) | payer OTHER, SELFPAY ==
[2023-06-20 11:59] VITALS: BP 110/70; PULSE 84; TEMP 36.9; O2SAT 100; BMI 47.5
--- NOTE | 2023-06-20 11:59 | A.OFFPC_ITS ---
Vital Signs 06/20/23 11:59 Height 5 ft 3 in Weight 268 lb 2 oz BMI 47.5 BP 110/70 Blood Pressure Location Lt brachial Position Sitting Pulse 84 Pulse Source Pulse Oximeter Temp 98.4 F Temp Source Oral Pulse Oximetry (%) 100 Oxygen Delivery Method Room Air Intake Visit Reasons: correction cold symptoms Intake Note: Pt has keno terminal operator covid Lung and she started with the cold and cough Sat she has 1 neg covid test 1 positive and 1 invalid test pt also has pink she was turned away from the walk-in yesterday Allergies clavulanic acid [Augmentin] Allergy (Unknown, Verified 06/20/23 16:13) Rash gabapentin [From NEURONTIN] Allergy (Unknown, Verified 06/20/23 16:13) HIVES Medication List - Last Reconciled 06/20/23 by KYE Crow Advair Diskus 500-50 mcg/dose (fluticasone propion-salmeterol) 1 inh inhalation BID 30 days NS albuterol sulfate 90 mcg/actuation (Ventolin HFA) 2 puffs inhalation Q4-6H PRN 30 days azithromycin For 250 mg dose pack: take 500 mg today (day 1), then 250 mg for 4 days (days 2-5) PO benzonatate 100 mg PO BID PRN ipratropium-albuterol 0.5 mg-3 mg(2.5 mg base)/3 mL 3 mL inhalation Q4-6H PRN 30 days meloxicam 15 mg PO DAILY ofloxacin 0.3% 2 drps ophthalmic (eye) QID prednisone 20 mg PO BID Tobacco use date assessed: 06/20/23 Dental Screening Dental Screen Date: 06/20/23 Did you have a dental visit in the last 12 months?: No Did you have a dental problem in the last 6 months where you did not have access to dental care?: No Was dental information given to patient?: Patient has dentist HPI HPI Comments History of Present Illness Details Patient is a 38-year-old female in today for a problem visit. She states that over the past week she has developed symptoms of headache, sore throat, cough, congestion, and has been expectorating green mucus. Denies fever, shortness of breath, chest pain, numbness, dizziness, constipation. She has had one day with 3-4 bouts of diarrhea, which has since resolved. She has a past medical history significant for asthma. 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 She states she had been at home COVID test which was positive, however the test at work came back negative. She is also offering complaints of left eye redness, discharge, itchiness x4 days. Denies dizziness, or any vision changes. Denies any trauma to the area. Patient states that several of the children at daycare facility have pinkeye. She has not had pinkeye in a while but states that it feels similar. [facility] Medical History Urinary tract infection Environmental allergies Asthma, mild intermittent, poorly controlled Cervicalgia Bilateral otitis media Post-COVID chronic dyspnea Asthma Surgical History History of cholecystectomy Family History Father Diabetes mellitus type 2 with complications Mother Diabetes mellitus type 2 with complications Other Mental health disorder Substance use disorder Social History Housing: House Alcohol intake: never Patient Tobacco Use Status: Never used Tobacco e-Cigarette/Vaping Use: Never Used Second Hand Smoke Exposure: Yes Current occupational status: employed Cognitive needs: No Hearing needs: No Vision needs: No Questionnaire Thrive Questionnaire Date Thrive assessed: 05/24/23 ARLETH-7 AMB Questionnaire ARLETH-7 Date ARLETH - 7 assessed: 05/24/23 Source: Developed by Drs. Owen Fabian, Deloris White, Basil Poe and colleagues, with an educational ender from [employer]. Review of Systems Const Details: Constitutional : No Weight loss, No Fever, No Chills, Admits some Fatigue, No Malaise ENT/Mouth : Admits sore throat, No Rhinorrhea. TM intact and pearly benavides. Eyes: Admits slight Eye Pain, No Swelling, Admits Redness and discharge. Cardiovascular : No Chest Pain, No SOB, No Dyspnea on Exertion, No Orthopnea, No Edema, No Palpitations Respiratory : No Cough, No Sputum, No Wheezing Gastrointestinal : No Nausea, No Vomiting, No Diarrhea, No Constipation, No abdominal Pain, No Hematochezia, No Melena Neuro : No Weakness, No Numbness, No Dizziness, No Headache Psych : No Anxiety/Panic, No Depression All other systems reviewed and are negative Physical exam (Primary Care) Vital Signs: Last Vital Signs Temp 98.4 F 06/20/23 11:59 Pulse 84 06/20/23 11:59 BP 110/70 06/20/23 11:59 Pulse Ox 100 06/20/23 11:59 Oxygen Delivery Method Room Air 06/20/23 11:59 Care Plan Goal for BP management: Patient's vital signs have been reviewed and are stable. BMI result Body Mass Index 47.5 Tobacco/Smoking Status: Tobacco use Status Tobacco use date assessed 06/20/23 06/20/23 12:09 Patient Tobacco Use Status Never used Tobacco 06/20/23 11:59 e-Cigarette/Vaping Use Never Used 06/20/23 11:59 Thrive Assessment: Date of Thrive Assessment Date Thrive assessed 05/24/23 06/20/23 11:59 Const Other: Appearance: Alert.? Oriented X3.? No acute distress.? Eyes: Pupils equal, round and reactive to light.?Left eye erythema, crusting on lower lid and eyelashes. ENT: Pharynx erythema. TM intact and pearly benavides. Neck: Normal inspection.? Neck supple.?Full ROM. CVS: Normal heart rate and rhythm.? Pulses normal.? Respiratory: No respiratory distress.? Breath sounds normal.? Abdomen: Soft and nontender.? Skin: Skin warm and dry.? Normal skin color.? Normal skin turgor.? Neuro: Oriented X 3.? No motor deficit.? No sensory deficit. CN 2-12 intact Results AMB Rapid Strep AMB Rapid Strep Negative Last Edit by TITA Tamez on 06/20/23 12:32 Results Reviewed Results Reviewed: Laboratory Last Values Strep Scn Rapid [facility] Negative 06/20/23 12:31 Assessment and Plan Assessment & Plan (1) Upper respiratory infection: Comment: Patient had in office upper respiratory swab. Will give prednisone, benzonatate, azithromycin to be taken as directed. Patient has been educated on signs of worsening symptoms and when to report back to the office or when to present to the emergency room. Patient states she understands this plan. Code(s): J06.9 - Acute upper respiratory infection, unspecified Qualifiers: URI type: unspecified URI Qualified Code(s): J06.9 - Acute upper respiratory infection, unspecified Plan: Patient also will have referral to in [place] allergy and immunology. (2) Conjunctivitis of left eye: Comment: Patient will be given ofloxacin to be taken as directed. She has been educated on signs of worsening symptoms and when to report back to the office or when to present to the emergency room. Patient states she understands the plan Code(s): H10.9 - Unspecified conjunctivitis Qualifiers: Conjunctivitis type: acute Acute conjunctivitis type: unspecified Qualified Code(s): H10.32 - Unspecified acute conjunctivitis, left eye Plan: Take your medications as prescribed. If you were prescribed antibiotics today, it is important that you take your medication to their entirety, do not skip any doses, do not finish them early. Follow-up with your primary care provider this week. Return to the emergency department with new or worsening symptoms. Such as fevers, chills, chest pain, shortness of breath, nausea, vomiting, dizziness, headache, vision changes, lethargy In case of emergency call 911 Plan Follow-up in 3-4 months. Orders: Orders SARS-CoV2/FLU/RSV Today J06.9 - Acute upper respiratory infection, unspecified Complete Blood Count Auto Diff Today Z13.0 - Encounter for screening for diseases of the blood and blood-forming organs and certain disorders involving the immune mechanism Comprehensive Met. Panel Today Z13.0 - Encounter for screening for diseases of the blood and blood-forming organs and certain disorders involving the immune mechanism AMB Rapid Strep Screen Today Z13.9 - Encounter for screening, unspecified Referrals Allergy & Immunology Referral J45.20 - Mild intermittent asthma, uncomplicated Medications: New prednisone 20 mg PO BID 10 tabs 0RF benzonatate 100 mg PO BID PRN 20 caps 0RF cough ofloxacin 0.3% 2 drps ophthalmic (eye) QID 5 mL 0RF azithromycin For 250 mg dose pack: take 500 mg today (day 1), then 250 mg for 4 days (days 2-5) PO 6 tabs 0RF Coding Level of Care Code Est Pt Level 3 (01726) Diagnoses Upper respiratory tract infection, unspecified type J06.9 URI type: unspecified URI Acute conjunctivitis of left eye, unspecified acute conjunctivitis type H10.32 Conjunctivitis type: acute Acute conjunctivitis type: unspecified Time Spent (min) 30
== END 2023-06-20 15:18 | disposition home or self-care (01) ==
PROVIDERS: PCP Nurse Practitioner Primary Care; Visit Provider Nurse Practitioner Primary Care
DX: J02.9 Acute pharyngitis, unspecified (principal)
CPT/HCPCS: 87880; 99213

== ENCOUNTER 2023-06-20 12:33 | Outpatient (REF) | payer OTHER, SELFPAY ==
[2023-06-20 16:07] LABS: MANUAL DIFF FLAG NO
[2023-06-20 16:22] LABS: Basophils Absolute Auto 0.1 X10*3/uL (0.0-0.2); Basophils Percent Auto 0.5 % (0-2); Eosinophils Absolute Auto 0.2 X10*3/uL (0.0-0.4); Eosinophils Percent Auto 2.1 % (0-4); Hematocrit 45.5 % (37.0-47.0); Hemoglobin 14.2 g/dl (12.0-16.0); Imm Gran Abs Auto 0.04 X10*3/uL (0.00-0.03); Imm Gran Pct Auto 0.4 % (0.0-0.4); Lymphocytes Absolute Auto 3.8 X10*3/uL (1.2-4.9); Lymphocytes Percent Auto 34.9 % (20-40); Mean Corpuscular HGB Conc 31.2 g/dl (31.0-35.0); Mean Corpuscular Hemoglobin 26.3 pg (27.0-33.0); Mean Corpuscular Volume 84.3 fL (80.0-98.0); Mean Platelet Volume 9.9 fL (9.4-12.3); Monocytes Absolute Auto 0.5 X10*3/uL (0.1-1.2); Monocytes Percent Auto 4.3 % (2-11); Neutrophils Absolute Auto 6.4 x10*3/uL (2.0-8.3); Neutrophils Percent Auto 57.8 % (45-73); Platelet Count 397 X10*3/uL (160-400); Red Cell Distribution Width 13.4 % (11.0-16.0)
[2023-06-20 17:08] LABS: Influenza A PCR NEGATIVE (Negative); Influenza B PCR NEGATIVE (Negative); Resp Syncy Virus RNA Qual PCR NEGATIVE (Negative); SARS COV2 PCR INHOUSE NEGATIVE (Negative)
== END 2023-06-20 12:34 | disposition home or self-care (01) ==
LOC: HO.HMGCLDS 12:33
PROVIDERS: PCP Nurse Practitioner Primary Care; Visit Provider Nurse Practitioner Primary Care
DX: J06.9 Acute upper respiratory infection, unspecified (principal); Z13.0 Encounter for screening for diseases of the blood and blood-forming organs and certain disorders involving the immune mechanism
CPT/HCPCS: 0241U; 36415; 85025

== ENCOUNTER 2023-07-03 10:15 | Outpatient (AMB) | payer OTHER, SELFPAY ==
[2023-07-03 11:15] VITALS: BP 112/68; PULSE 112; TEMP 37.7; O2SAT 96
--- NOTE | 2023-07-03 11:15 | AM.OFFWIN_ITS ---
Intake Vital Signs 07/03/23 11:15 Height 5 ft 3 in BP 112/68 Blood Pressure Location Lt brachial Position Sitting Pulse 112 H Pulse Source Pulse Oximeter Temp 99.8 F Temp Source Oral Pulse Oximetry (%) 96 Oxygen Delivery Method Room Air Intake Visit Reasons: EP Cough, Fever, Vomiting [id number] Intake Note: pt is here for c.o cough, fever, vomiting, and states her daughter tested positive for flu type A on Sunday. patient states she is high risk and wants to be evaluated. Patient Tobacco Use Status: Never used Tobacco Allergies clavulanic acid [Augmentin] Allergy (Unknown, Verified 07/03/23 11:16) Rash gabapentin [From NEURONTIN] Allergy (Unknown, Verified 07/03/23 11:16) HIVES Do you need a note to return to daycare/school/sports/work: Yes HPI HPI Comments History of Present Illness Details Patient is 38-year-old female in today for sick visit. She was last seen in the walk-in 13 days ago for upper respiratory infection and conjunctivitis. She is in the walk-in clinic today with a chief complaint of fever, vomiting, reproducible chest pain, dyspnea on exertion, cough, and sore throat. Patient has past medical history significant for asthma. She states that she took and at home test that was positive for influenza type A. His use [id number] medications with little effect. Verified in office today patient has allergy to Augmentin, but is able to take amoxicillin. [facility] Medical History Urinary tract infection Environmental allergies Asthma, mild intermittent, poorly controlled Cervicalgia Bilateral otitis media Post-COVID chronic dyspnea Asthma Surgical History History of cholecystectomy Family History Father Diabetes mellitus type 2 with complications Mother Diabetes mellitus type 2 with complications Other Mental health disorder Substance use disorder Social History Housing: House Alcohol intake: never Patient Tobacco Use Status: Never used Tobacco e-Cigarette/Vaping Use: Never Used Second Hand Smoke Exposure: Yes Current occupational status: employed Cognitive needs: No Hearing needs: No Vision needs: No Review of Systems Const Details: Constitutional : No Weight loss, Admits subjective Fever, Admits Chills, Admits Fatigue, Admits Malaise ENT/Mouth : Admits sore throat, No Rhinorrhea. No ear fullness. Eyes: No Eye Pain, No Swelling, No Redness Cardiovascular : No Chest Pain, No SOB, Admits Dyspnea on Exertion after coughing fits, No Orthopnea, No Edema, No Palpitations Respiratory : Admits Cough, No Sputum, Admits Wheezing Gastrointestinal : No Nausea, Admits Vomiting once, No Diarrhea, No Constipation, No abdominal Pain, No Hematochezia, No Melena Genitourinary : No Dysuria, No Urinary Frequency, No Hematuria, Musculoskeletal : No joint pain, No Myalgias, No Joint Swelling Skin : No Skin Lesions, No rash Neuro : No Weakness, No Numbness, No Dizziness, No Headache Psych : No Anxiety/Panic, No Depression Heme/Lymph: No Bruising, No Bleeding,No Lymphadenopathy Endocrine : No Polyuria, No Polydipsia All other systems reviewed and are negative Physical Exam Vital Signs: Last Vital Signs Temp 99.8 F 07/03/23 11:15 Pulse 112 H 07/03/23 11:15 BP 112/68 07/03/23 11:15 Pulse Ox 96 07/03/23 11:15 Oxygen Delivery Method Room Air 07/03/23 11:15 On physical exam patient's pulse was 105 beats per minute. Patient has not utilize Tylenol for low-grade fever. Const Other: Appearance: Alert.? Oriented X3.? No acute distress.? Head: Normocephalic. Eyes: Pupils equal, round and reactive to light. TM intact and pearly benavides. ? ENT: Pharynx erythema.?Septum Midline. Neck: Normal inspection.? Neck supple.?Full ROM CVS: Normal heart rate and rhythm.? Pulses normal.? Respiratory: No respiratory distress.? Bilateral wheeze of upper airways. ? Abdomen: Soft and nontender.? Skin: Skin warm and dry.? Normal skin color.? Normal skin turgor.? Neuro: Oriented X 3.? No motor deficit.? No sensory deficit. CN 2-12 intact Assessment & Plan Assessment & Plan (1) Upper respiratory infection: Comment: Patient had in office chest x-ray, will wait for radiologist to read for official results. Patient likely has upper respiratory infection that is progressing in to pneumonia. Will give prednisone, doxycycline, amoxicillin. Patient has been educated on the side effects of these medications. Patient has been educated on signs of worsening symptoms and when to report to the walk-in or when to present to the emergency room. Will also refill patient's inhalers. Code(s): J06.9 - Acute upper respiratory infection, unspecified Qualifiers: URI type: unspecified URI Qualified Code(s): J06.9 - Acute upper respiratory infection, unspecified Plan: Take your medications as prescribed. If you were prescribed antibiotics today, it is important that you take your medication to their entirety, do not skip any doses, do not finish them early. Follow-up with your primary care provider this week. Return to the emergency department with new or worsening symptoms. Such as fevers, chills, chest pain, shortness of breath, nausea, vomiting, dizziness, headache, vision changes, lethargy In case of emergency call 911 Plan Follow-up with PCP Orders: Orders XR chest 2V Today Z13.83 - Encounter for screening for respiratory disorder NEC Complete Blood Count Auto Diff Today Z13.0 - Encounter for screening for diseases of the blood and blood-forming organs and certain disorders involving the immune mechanism Comprehensive Met. Panel Today Z91.89 - Other specified personal risk factors, not elsewhere classified Medications: New amoxicillin 875 mg PO Q12H 20 tabs 0RF doxycycline hyclate 100 mg PO BID 20 caps 0RF prednisone 50 mg PO DAILY 5 tabs 0RF Refilled Advair Diskus 500-50 mcg/dose (fluticasone propion-salmeterol) 1 inh inhalation BID 30 days 1 ea 6RF NS J45.909 - Unspecified asthma, uncomplicated albuterol sulfate 90 mcg/actuation (Ventolin HFA) 2 puffs inhalation Q4-6H 30 days PRN 8.5 grams 6RF Cough, wheeze J45.40 - Moderate persistent asthma, uncomplicated ipratropium-albuterol 0.5 mg-3 mg(2.5 mg base)/3 mL 3 mL inhalation Q4-6H 30 days PRN 270 mL 6RF wheezing J45.909 - Unspecified asthma, uncomplicated Coding Level of Care Code Est Pt Level 3 (78711) Diagnoses Upper respiratory tract infection, unspecified type J06.9 URI type: unspecified URI Time Spent (min) 30
== END 2023-07-03 13:12 | disposition home or self-care (01) ==
PROVIDERS: PCP Nurse Practitioner Primary Care; Visit Provider Nurse Practitioner Primary Care
DX: J06.9 Acute upper respiratory infection, unspecified (principal); J45.909 Unspecified asthma, uncomplicated
CPT/HCPCS: 99213

== ENCOUNTER 2023-07-03 11:35 | Outpatient (REF) | payer OTHER, SELFPAY ==
--- NOTE | ~2023-07-03 | XR_ITS ---
EXAMINATION: XR CHEST 2 VIEW CLINICAL INFORMATION: Screening for respiratory disorder COMPARISON: 04/18/2022 TECHNIQUE: PA and lateral views of the chest obtained. FINDINGS: The lungs are clear. There are no pleural effusions. The cardiomediastinal silhouette is normal. XR/XR chest 2V IMPRESSION: No acute cardiopulmonary disease.
[2023-07-03 13:29] LABS: MANUAL DIFF FLAG NO
[2023-07-03 13:34] LABS: Basophils Absolute Auto 0.1 X10*3/uL (0.0-0.2); Basophils Percent Auto 1.3 % (0-2); Eosinophils Percent Auto 0.3 % (0-4); Hematocrit 44.6 % (37.0-47.0); Imm Gran Abs Auto 0.02 X10*3/uL (0.00-0.03); Imm Gran Pct Auto 0.3 % (0.0-0.4); Lymphocytes Percent Auto 32.4 % (20-40); Mean Corpuscular HGB Conc 31.4 g/dl (31.0-35.0); Mean Corpuscular Hemoglobin 26.6 pg (27.0-33.0); Mean Corpuscular Volume 84.6 fL (80.0-98.0); Mean Platelet Volume 9.6 fL (9.4-12.3); Monocytes Absolute Auto 0.5 X10*3/uL (0.1-1.2); Monocytes Percent Auto 8.8 % (2-11); Neutrophils Absolute Auto 3.4 x10*3/uL (2.0-8.3); Neutrophils Percent Auto 56.9 % (45-73); Platelet Count 307 X10*3/uL (160-400); Red Blood Count 5.27 X10*6/uL (4.20-5.50); Red Cell Distribution Width 13.8 % (11.0-16.0)
[2023-07-03 15:06] LABS: Alanine Aminotransferase 18 U/L (0-31); Albumin Level 3.6 g/dL (3.5-5.0); Alkaline Phosphatase 66 U/L (39-117); Anion Gap 16 (12-20); Aspartate Amino Transferase 18 U/L (5-31); Bilirubin Total 0.3 mg/dL (0.0-1.0); Blood Urea Nitrogen 12 mg/dL (9-16); Calcium 8.6 mg/dL (8.4-10.2); Carbon Dioxide 23 mmol/L (22-29); Chloride 101 mmol/L (96-108); Estimated Glomerular Filt Rate > 60; Glucose Random 126 mg/dL (60-115); Potassium 3.5 mmol/L (3.3-5.1); Sodium 136 mmol/L (135-145); Total Protein 7.2 g/dL (6.5-8.0)
== END 2023-07-03 11:36 | disposition home or self-care (01) ==
LOC: HO.HMGCX 11:35
PROVIDERS: PCP Nurse Practitioner Primary Care; Visit Provider Nurse Practitioner Primary Care
DX: Z13.83 Encounter for screening for respiratory disorder NEC (principal); Z13.0 Encounter for screening for diseases of the blood and blood-forming organs and certain disorders involving the immune mechanism
CPT/HCPCS: 36415; 71046; 80053; 85025

== ENCOUNTER 2023-07-06 10:25 | Outpatient (AMB) | payer OTHER, SELFPAY ==
--- NOTE | 2023-07-06 10:35 | MHC.PC.OV ---
Vital Signs 07/06/23 10:36 Height 5 ft 3 in Weight 271 lb 8 oz BMI 48.1 BP 106/70 Blood Pressure Location Rt brachial Position Sitting Pulse 89 Pulse Source Pulse Oximeter Pulse Oximetry (%) 98 Oxygen Delivery Method Room Air Intake Visit Reasons: Follow up Walk-in Intake Note: Pt is here follow from the walk-in and is still has resp issue coughing Allergies clavulanic acid [Augmentin] Allergy (Unknown, Verified 07/06/23 11:13) Rash gabapentin [From NEURONTIN] Allergy (Unknown, Verified 07/06/23 11:13) HIVES Medication List - Last Reconciled 07/06/23 by KYE Crow albuterol sulfate 90 mcg/actuation (Ventolin HFA) 2 puffs inhalation Q4-6H PRN 30 days amoxicillin 875 mg PO Q12H benzonatate 200 mg PO BID PRN doxycycline hyclate 100 mg PO BID famotidine 20 mg PO DAILY fluticasone furoate-vilanterol 200-25 mcg/dose (Breo Ellipta) 1 inh inhalation Q24H ipratropium-albuterol 0.5 mg-3 mg(2.5 mg base)/3 mL 3 mL inhalation Q4-6H PRN 30 days prednisone 50 mg PO DAILY Tobacco use date assessed: 07/06/23 Dental Screening Dental Screen Date: 07/06/23 Did you have a dental visit in the last 12 months?: No Did you have a dental problem in the last 6 months where you did not have access to dental care?: No Was dental information given to patient?: Patient has dentist HPI HPI Comments History of Present Illness Details This is a 38-year-old female in for follow-up from walk-in visit. Patient was seen 3 days prior for upper respiratory infection, symptoms include fever, cough, chest wall pain, sore throat. She was treated for pneumonia and given prednisone and antibiotics. The appointment today the patient states that she feels better although the cough is still lingering. She states that she has to use her albuterol inhaler 2 times per day, and that the prednisone helps a little. The cough is worse at night, and often interrupts her sleep. Patient does not currently have a amplifier mechanic, will refer. Patient also has a referral out for allergy and immunology. Patient denies chest pain, numbness, shortness of breath, dizziness, headache, nausea, vomiting, fever. [facility] Medical History Urinary tract infection Environmental allergies Asthma, mild intermittent, poorly controlled Cervicalgia Bilateral otitis media Post-COVID chronic dyspnea Asthma Surgical History History of cholecystectomy Family History Father Diabetes mellitus type 2 with complications Mother Diabetes mellitus type 2 with complications Other Mental health disorder Substance use disorder Social History Housing: House Alcohol intake: never Patient Tobacco Use Status: Never used Tobacco e-Cigarette/Vaping Use: Never Used Second Hand Smoke Exposure: Yes Current occupational status: employed Cognitive needs: No Hearing needs: No Vision needs: No Questionnaire Thrive Questionnaire Date Thrive assessed: 05/24/23 ARLETH-7 AMB Questionnaire ARLETH-7 Date ARLETH - 7 assessed: 05/24/23 Source: Developed by Drs. Owen Fabian, Deloris White, Basil Poe and colleagues, with an educational ender from [employer]. Review of Systems Const Details: Constitutional : No Weight loss, No Fever, No Chills, Admits some Fatigue ENT/Mouth : No sore throat, No Rhinorrhea Eyes: No Eye Pain, No Swelling, No Redness Cardiovascular : No Chest Pain, No SOB, No Dyspnea on Exertion, No Orthopnea, No Edema, No Palpitations. Admits reproducible chest wall pain. Respiratory : Admits Cough, No Sputum, Admits Wheezing Gastrointestinal : No Nausea, No Vomiting, No Diarrhea, No Constipation, No abdominal Pain, No Hematochezia, No Melena Genitourinary : No Dysuria, No Urinary Frequency, No Hematuria, Musculoskeletal : No joint pain, No Myalgias, No Joint Swelling Skin : No Skin Lesions, No rash Neuro : No Weakness, No Numbness, No Dizziness, No Headache Psych : No Anxiety/Panic, No Depression Heme/Lymph: No Bruising, No Bleeding,No Lymphadenopathy Endocrine : No Polyuria, No Polydipsia All other systems reviewed and are negative Physical exam (Primary Care) Vital Signs: Last Vital Signs Pulse 89 01/26/24 10:36 BP 106/70 07/06/23 10:36 Pulse Ox 98 07/06/23 10:36 Oxygen Delivery Method Room Air 07/06/23 10:36 Care Plan Goal for BP management: Vital signs reviewed stable. BMI result Body Mass Index 48.1 Tobacco/Smoking Status: Tobacco use Status Tobacco use date assessed 07/06/23 07/06/23 10:41 Patient Tobacco Use Status Never used Tobacco 07/06/23 10:41 e-Cigarette/Vaping Use Never Used 07/06/23 10:41 Thrive Assessment: Date of Thrive Assessment Date Thrive assessed 05/24/23 07/06/23 10:41 Const Other: Appearance: Alert.? Oriented X3.? No acute distress.? Head: Normocephalic, atraumatic. Eyes: Pupils equal, round and reactive to light.? ENT: Right tonsil +2, left tonsil +1.?TM intact, effusion on right TM, no erythema. left TM intact and pearly benavides. Neck: Normal inspection.? Neck supple.?Full ROM. CVS: Normal heart rate and rhythm.? Pulses normal.? Respiratory: Bilateral wheeze upper lobes. Cough. ? Skin: Skin warm and dry.? Normal skin color.? Normal skin turgor.? Neuro: Oriented X 3.? No motor deficit.? No sensory deficit. CN 2-12 intact Assessment and Plan Assessment & Plan (1) Enlargement of right palatine tonsil: Comment: Patient will get referral to ear nose throat. Will also prescribe patient famotidine to be taken as directed. Patient has been instructed on signs of worsening symptoms and when to report back to the office or when to present to the deep Code(s): J35.1 - Hypertrophy of tonsils (2) Cough: Comment: Patient has referral to pulmonology and Allergy. Patient is currently taking prednisone, albuterol, and Breo Ellipta. Will prescribe patient benzonatate. Patient has been directed to take Pepcid as her cough may be exacerbated by reflux. Patient has been educated on signs and symptoms of worsening disease and has been educated on when to return to the office or when to present to the ED. Code(s): R05.9 - Cough, unspecified Qualifiers: Cough type: acute Qualified Code(s): R05.1 - Acute cough Plan: Patient will follow-up if cough is not improved. Orders: Referrals Pulmonary Medicine Referral J45.20 - Mild intermittent asthma, uncomplicated Ear/Nose/Throat Referral J35.1 - Hypertrophy of tonsils Medications: New benzonatate 200 mg PO BID PRN 30 caps 0RF cough famotidine 20 mg PO DAILY 90 tabs 0RF Coding Level of Care Code Est Pt Level 3 (09339) Diagnoses Enlargement of right palatine tonsil J35.1 Acute cough R05.1 Cough type: acute Time Spent (min) 35
[2023-07-06 10:36] VITALS: BP 106/70; PULSE 89; O2SAT 98; BMI 48.1
== END 2023-07-06 13:02 | disposition home or self-care (01) ==
PROVIDERS: PCP Nurse Practitioner Primary Care; Visit Provider Nurse Practitioner Primary Care
DX: J35.1 Hypertrophy of tonsils (principal); R05.1 Acute cough
CPT/HCPCS: 99213

== ENCOUNTER → 2023-09-20 10:29 | Outpatient (BNVA) | payer OTHER, SELFPAY | PROVIDERS: PCP Nurse Practitioner Primary Care; Visit Provider Physician Assistant | DX: S40.011A Contusion of right shoulder, initial encounter (principal); S39.012A Strain of muscle, fascia and tendon of lower back, initial encounter; X58.XXXA Exposure to other specified factors, initial encounter | CPT/HCPCS: 99203 ==

== ENCOUNTER → 2023-09-25 08:08 | Outpatient (BNVA) | payer OTHER, SELFPAY | PROVIDERS: PCP Nurse Practitioner Primary Care; Visit Provider Physician Assistant Medical | DX: S40.011A Contusion of right shoulder, initial encounter (principal); S46.911A Strain of unspecified muscle, fascia and tendon at shoulder and upper arm level, right arm, initial encounter; S39.012A Strain of muscle, fascia and tendon of lower back, initial encounter; X58.XXXA Exposure to other specified factors, initial encounter | CPT/HCPCS: 99213 ==

== ENCOUNTER 2023-10-12 10:51 | Outpatient (AMB) | payer OTHER, SELFPAY ==
[2023-10-12 10:50] VITALS: BP 110/84; PULSE 83; TEMP 36.8; O2SAT 97; BMI 47.0
--- NOTE | 2023-10-12 10:50 | AM.OFFWIN_ITS ---
Intake Vital Signs 10/12/23 10:50 Height 5 ft 3 in Weight 265 lb 8 oz BMI 47.0 BP 110/84 Blood Pressure Location Rt brachial Position Sitting Pulse 83 Pulse Source Pulse Oximeter Temp 98.2 F Temp Source Oral Pulse Oximetry (%) 97 Oxygen Delivery Method Room Air Intake Visit Reasons: EP Cough/RT ankle ?sprain Intake Note: Pt presents to the office today for c/o for cough and right ankle pain. She states the cough started about a week ago and the ankle pain started yesterday after falling off a curb. Patient Tobacco Use Status: Never used Tobacco Allergies clavulanic acid [Augmentin] Allergy (Unknown, Verified 10/12/23 10:56) Rash gabapentin [From NEURONTIN] Allergy (Unknown, Verified 10/12/23 10:56) HIVES HPI HPI Comments History of Present Illness Details 38 y/o female patient who presents to [facility] clinic with c/o right Ankle pain since yesterday. He tripped on curb when she getting out of car, and twisted her Ankle. Pt also c/o SOB, CP/tightness and wheezing. Pt has h/o uncontrolled Asthma with frequent exacerbations. She was recently (06/2023) seen here at in clinic for similar concerns, and was prescribed Abx, Prednisone and Breo Inhaler. Chest Xray normal. Pt was referred to insurance sales specialist plus Photographic Colorist, unfortunately Pt never scheduled appointment. She reports not getting any phone calls or letters, but her number recently changed. [facility] Medical History Urinary tract infection Environmental allergies Asthma, mild intermittent, poorly controlled Cervicalgia Bilateral otitis media Post-COVID chronic dyspnea Asthma Surgical History History of cholecystectomy Family History Father Diabetes mellitus type 2 with complications Mother Diabetes mellitus type 2 with complications Other Mental health disorder Substance use disorder Social History Housing: House Alcohol intake: never Patient Tobacco Use Status: Never used Tobacco e-Cigarette/Vaping Use: Never Used Second Hand Smoke Exposure: Yes Current occupational status: employed Cognitive needs: No Hearing needs: No Vision needs: No Review of Systems Const All systems reviewed & are unremarkable except as noted in HPI and below Physical Exam Vital Signs: Last Vital Signs Temp 98.2 F 10/12/23 10:50 Pulse 83 10/12/23 10:50 BP 110/84 10/12/23 10:50 Pulse Ox 97 10/12/23 10:50 Oxygen Delivery Method Room Air 10/12/23 10:50 BMI result Body Mass Index 47.0 Const General: comfortable and no acute distress Nutritional Appearance: obese Orientation/consciousness: patient oriented x3 HEENT Head: Yes normocephalic Ears: external ears normal and TM's normal bilaterally General nose exam: Normal nasal mucous membranes and turbinates present Face and sinus: Yes sinuses nontender Mouth: moist mucous membranes Throat: Yes posterior oropharynx normal Resp Effort & Inspection: normal respiratory effort, able to speak in complete sentences and Actively coughing Auscultation: no crackles, no rales, rhonchi and wheezes Cardio Rate: regular rate Rhythm: regular rhythm Neuro General: patient oriented x3, gait normal and moves all extremities Extrem General: Yes normal to inspection and Yes full ROM Right lower extremity: normal to inspection, full ROM, ankle Details: no edema and normal ROM; no tenderness, no swelling and no ecchymosis and foot Details: normal capillary refill, toes with normal ROM and no edema; no crepitus Left lower extremity: normal to inspection and full ROM Psych Speech and movement: Normal speech and movement present Office Procedures Nebulizer Treatment Nebulizer Treatment [id number]/MDI RX initial, or Nebulizer Subsequent Treatment Office Meds ipratropium 0.5 mg-albuterol 3 mg (2.5 mg base)/3 mL nebulization soln Performing Provider: Yin Dodge NP Performing Location: [facility] Administered by: Yin Dodge NP on 10/12/23 11:33 Dose Route Admin Location Dispensed Lot Number Expiration Date ND Risk Manager 3 mL inhalation 3 mL [id number] [employer] Assessment & Plan Assessment & Plan (1) Right ankle sprain: Code(s): S93.401A - Sprain of unspecified ligament of right ankle, initial encounter Qualifiers: Encounter type: initial encounter Involved ligament of ankle: unspecified ligament Qualified Code(s): S93.401A - Sprain of unspecified ligament of right ankle, initial encounter Plan: - IceHot - Wrapped with Juan - NSAIDs for pain relief - RTC if symptoms worse. (2) Cough: Code(s): R05.9 - Cough, unspecified Qualifiers: Cough type: acute Qualified Code(s): R05.1 - Acute cough Plan: - OTC cough medicines. (3) Asthma exacerbation: Code(s): J45.901 - Unspecified asthma with (acute) exacerbation Qualifiers: Asthma persistence: persistent Asthma severity: moderate Qualified Code(s): J45.41 - Moderate persistent asthma with (acute) exacerbation Plan: - Ordered more Prednisone for 10 days - Provided Pt with both phone numbers to call and make appointments (Allergy and Pulmonology). - F/u with PCP. Orders: Orders XR chest 2V Today R05.1 - Acute cough AMB Nebulizer Treatment Today R05.1 - Acute cough, R06.2 - Wheezing Medications: New prednisone 50 mg PO DAILY 7 days 7 tabs 0RF J45.41 - Moderate persistent asthma with (acute) exacerbation, R05.1 - Acute cough prednisone 50 mg PO DAILY 10 tabs 1RF 10 days J45.41 - Moderate persistent asthma with (acute) exacerbation, R05.1 - Acute cough Coding Level of Care Code Est Pt Level 4 (86558) Diagnoses Sprain of right ankle, unspecified ligament, initial encounter S93.401A Encounter type: initial encounter Involved ligament of ankle: unspecified ligament Acute cough R05.1 Cough type: acute Moderate persistent asthma with exacerbation J45.41 Asthma persistence: persistent Asthma severity: moderate CPT Codes Nebulizer Treatment - Nebulizer Treatment, initial or subsequent: 71037- Nebulizer/MDI RX initial, or Nebulizer Subsequent Treatment ([id number]) Time Spent (min) 20
== END 2023-10-12 13:44 | disposition home or self-care (01) ==
PROVIDERS: PCP Nurse Practitioner Primary Care; Visit Provider Nurse Practitioner Family
DX: S93.401A Sprain of unspecified ligament of right ankle, initial encounter (principal); R05.1 Acute cough; J45.41 Moderate persistent asthma with (acute) exacerbation
CPT/HCPCS: 94640; 99214; J7620

== ENCOUNTER 2023-10-12 11:17 | Outpatient (REF) | payer OTHER, SELFPAY ==
--- NOTE | ~2023-10-12 | XR_ITS ---
EXAMINATION: XR CHEST CLINICAL INFORMATION: Cough. Shortness of breath and wheezing. History of asthma. COMPARISON: Chest radiograph 07/03/2023. TECHNIQUE: 2 views of the chest were obtained. FINDINGS: Normal appearance of the cardiomediastinal silhouette. No focal airspace opacities, pleural effusion or pneumothorax. No acute osseous findings. Visualized upper abdomen is within normal limits. XR/XR chest 2V IMPRESSION: No acute cardiopulmonary findings.
== END 2023-10-12 11:18 | disposition home or self-care (01) ==
LOC: HO.HMGCX 11:17
PROVIDERS: PCP Nurse Practitioner Primary Care; Visit Provider Nurse Practitioner Family
DX: R05.1 Acute cough (principal)
CPT/HCPCS: 71046

== ENCOUNTER 2023-11-29 08:06 | Outpatient (AMB) | payer OTHER, SELFPAY ==
--- NOTE | 2023-11-29 08:08 | A.OFFPC_ITS ---
Vital Signs 11/29/23 08:09 Height 5 ft 3 in Weight 270 lb BMI 47.8 BP 116/70 Blood Pressure Location Lt brachial Position Sitting Pulse 78 Pulse Source Pulse Oximeter Pulse Oximetry (%) 98 Oxygen Delivery Method Room Air Intake Visit Reasons: Back Sunburn Intake Note: pt is here for sunburn on back. [place] beach on [place]. Red, burning, blistering Allergies clavulanic acid [Augmentin] Allergy (Unknown, Verified 11/29/23 08:24) Rash gabapentin [From NEURONTIN] Allergy (Unknown, Verified 11/29/23 08:24) HIVES Medication List - Last Reconciled 11/29/23 by KYE Crow albuterol sulfate 90 mcg/actuation (Ventolin HFA) 2 puffs inhalation Q4-6H PRN 30 days famotidine 20 mg PO DAILY fluticasone furoate-vilanterol 200-25 mcg/dose (Breo Ellipta) 1 inh inhalation Q24H ipratropium-albuterol 0.5 mg-3 mg(2.5 mg base)/3 mL 3 mL inhalation Q4-6H PRN 30 days Tobacco use date assessed: 11/29/23 Dental Screening Dental Screen Date: 07/06/23 HPI HPI Comments History of Present Illness Details Patient is a 38-year-old female in today for a sick visit. Patient reports sunburn on back times 3 days. Patient states she was out in the sun hide sunscreen but missed several spots, had developed very small blisters with clear discharge. Patient had picture of the sunburn on her phone, as it is improved significantly today. She denies fever chills, has utilize aloe vera spray with mild relief. Physical exam patient has superficial burn on her back approximately 1 ft x 1 ft. Erythema with small patch of blisters. No signs of infection. No numbness or tingling to the area. [facility] Medical History Urinary tract infection Environmental allergies Asthma, mild intermittent, poorly controlled Cervicalgia Bilateral otitis media Post-COVID chronic dyspnea Asthma Surgical History History of cholecystectomy Family History Father Diabetes mellitus type 2 with complications Mother Diabetes mellitus type 2 with complications Other Mental health disorder Substance use disorder Social History Housing: House Alcohol intake: never Patient Tobacco Use Status: Never used Tobacco e-Cigarette/Vaping Use: Never Used Second Hand Smoke Exposure: Yes Current occupational status: employed Cognitive needs: No Hearing needs: No Vision needs: No Questionnaire PHQ-9 Over the last 2 weeks, how often have you been bothered by any of the following problems? 1. Little interest or pleasure in doing things: not at all 2. Feeling down, depressed, or hopeless: not at all 3. Trouble falling or staying asleep, or sleeping too much: not at all 4. Feeling tired or having little energy: not at all 5. Poor appetite or overeating: not at all 6. Feeling bad about yourself - or that you are a failure or have let yourself or your family down: not at all 7. Trouble concentrating on things, such as reading the newspaper or watching television: not at all 8. Moving or speaking so slowly that other people could have noticed. Or the opposite - being so fidgety or restless that you have been moving around a lot more than usual: not at all 9. Thoughts that you would be better off or of hurting yourself in some way: not at all Total score: 0 Depression Screening Interpretation: Negative Depression Screening Done: Yes 71952 - PHQ-9 Billing: Yes Source: Developed by Drs. Owen Fabian, Deloris White, Basil Poe and colleagues, with an educational ender from [employer]. Thrive Questionnaire Date Thrive assessed: 11/29/23 I am a: Patient What is your living situation today?: I have a steady place to live Within the past 12 months, did the food you bought not last and you didn't have the money to get more?: Never true Within the past 12 months, did you worry whether your food would run out before you got money to buy more?: Never true Do you have trouble paying for medicines?: No Do you have trouble getting transportation to medical appointments?: No Do you have trouble paying your heating and electricity bill?: No Do you have trouble taking care of your child, family member or friend?: No Do you have trouble with day-to-day activities such as bathing, preparing meals, shopping, managing finances, etc.?: No Are you currently unemployed and looking for a job?: No Are you interested in more education?: No Please select the resources that you would like help with: None Currently or been in a relationship where the following occur: no concerns reported THRIVE Score: 0 AUDIT C Alcohol Use Questionnaire (AUDIT-C) 1. How often do you have a drink containing alcohol?: Never 3. How often do you have six or more drinks on one occasion?: Never Total Score: 0 ARLETH-7 AMB Questionnaire ARLETH-7 Date ARLETH - 7 assessed: 11/29/23 Feeling nervous, anxious, or on edge: 0 = Not at all Not being able to stop or control worryin = Not at all Worrying too much about different things: 0 = Not at all Trouble relaxin = Not at all Being so restless that it is hard to sit still: 0 = Not at all Becoming easily annoyed or irritable: 0 = Not at all Feeling afraid as if something awful might happen: 0 = Not at all Total ARLETH-7 score (0-4 normal; 5-9 mild; 10-14 moderate; 15-21 severe): 0 Source: Developed by Drs. Owen Fabian, Deloris White, Basil Poe and colleagues, with an educational ender from [employer]. ARLETH-7 Assessment Billing ARLETH-7 Assessment Tool: ARLETH-7 Assessment 58741 Review of Systems Const All systems reviewed & are unremarkable except as noted in HPI and below Denies body aches, Denies chills, Denies fatigue and Denies fever(s) Endo Denies fatigue Physical exam (Primary Care) Vital Signs: Last Vital Signs Pulse 78 11/29/23 08:09 BP 116/70 11/29/23 08:09 Pulse Ox 98 11/29/23 08:09 Oxygen Delivery Method Room Air 11/29/23 08:09 Care Plan Goal for BP management: Vital signs reviewed stable BMI result Body Mass Index 47.8 Tobacco/Smoking Status: Tobacco use Status Tobacco use date assessed 11/29/23 11/29/23 08:14 Patient Tobacco Use Status Never used Tobacco 11/29/23 08:14 e-Cigarette/Vaping Use Never Used 11/29/23 08:14 PHQ-9: PHQ-9 Score PHQ-9: Total score 0 11/29/23 08:14 Depression Screening Interpretation: Negative Thrive Assessment: Date of Thrive Assessment Date Thrive assessed 11/29/23 11/29/23 08:14 Currently or been in a relationship where the following occur: no concerns reported Const Other: Appearance: Alert.? Oriented X3.? No acute distress.? Head: Normocephalic. CVS: Normal heart rate and rhythm.? Pulses normal.? Respiratory: No respiratory distress.? Breath sounds normal.? Skin: 1 ft x 1 ft patch of superficial burn on patient's back. Small cluster of small blisters clear drainage. No signs of infection. Wound has healed nicely since Sunday looking at the pictures she provides. ? Neuro: Oriented X 3.? No motor deficit.? No sensory deficit. CN 2-12 intact Assessment and Plan Assessment & Plan (1) Sunburn: Comment: Patient given Xeroform dressings to cover the area that does not and blisters. Patient given small course of prednisone. Has also been educated she can utilize ibuprofen for pain relief can also continue to use hello cream. Patient has been educated this may take up to another 7-10 days to fully heal. No concerns for infection at this time Code(s): L55.9 - Sunburn, unspecified Plan: follow up with signs of worsening symptoms. Medications: New prednisone 50 mg PO DAILY 4 tabs 0RF Coding Level of Care Code Est Pt Level 3 (68364) Diagnoses Sunburn L55.9 Additional Codes ARLETH-7 Assessment Billing - ARLETH-7 Assessment Tool: ARLETH-7 Assessment 51523 ([id number]) Time Spent (min) 21
[2023-11-29 08:09] VITALS: BP 116/70; PULSE 78; O2SAT 98; BMI 47.8
== END 2023-11-29 15:27 | disposition home or self-care (01) ==
PROVIDERS: PCP Nurse Practitioner Primary Care; Visit Provider Nurse Practitioner Primary Care
DX: L55.9 Sunburn, unspecified (principal)
CPT/HCPCS: 99213

== ENCOUNTER 2024-04-24 11:06 | Outpatient (AMB) | payer OTHER, SELFPAY ==
[2024-04-24 11:09] VITALS: BP 108/72; PULSE 76; TEMP 37.1; O2SAT 98
--- NOTE | 2024-04-24 11:09 | AM.OFFWIN_ITS ---
Intake Vital Signs 04/24/24 11:09 Height 5 ft 3 in BP 108/72 Blood Pressure Location Rt brachial Position Sitting Pulse 76 Pulse Source Pulse Oximeter Temp 98.7 F Temp Source Oral Pulse Oximetry (%) 98 Intake Visit Reasons: EP Dizzy, lightheaded Intake Note: pt is here for dizziness and lightheaded, migraine. ongoing since yesterday Patient Tobacco Use Status: Never used Tobacco Allergies clavulanic acid [Augmentin] Allergy (Unknown, Verified 04/24/24 11:09) Rash gabapentin [From NEURONTIN] Allergy (Unknown, Verified 04/24/24 11:09) HIVES Do you need a note to return to daycare/school/sports/work: Yes HPI EP Dizzy, lightheaded HPI Details This note is constructed using voice recognition software. While every effort has been made to ensure accuracy, sales commissions analyst errors may have been included. The patient is a 38 year old female who presents to the clinic today with headache, dizziness, and nausea since yesterday. She reports a chronic history of headaches, approximately 2 per month. They typically last more than 4 hours, and involve light sensitivity, sound sensitivity, and nausea. She has a same this time, with light and sound sensitivity, nausea. She denies vomiting. She denies head trauma. She tried Tylenol to help the pain, but it did not resolve. Typically Tylenol and sleep helps. [facility] Medical History Urinary tract infection Environmental allergies Asthma, mild intermittent, poorly controlled Cervicalgia Bilateral otitis media Post-COVID chronic dyspnea Asthma Surgical History History of cholecystectomy Family History Father Diabetes mellitus type 2 with complications Mother Diabetes mellitus type 2 with complications Other Mental health disorder Substance use disorder Social History Housing: House Alcohol intake: never Patient Tobacco Use Status: Never used Tobacco e-Cigarette/Vaping Use: Never Used Second Hand Smoke Exposure: Yes Current occupational status: employed Cognitive needs: No Hearing needs: No Vision needs: No Review of Systems Const All systems reviewed & are unremarkable except as noted in HPI and below Physical Exam Vital Signs: Last Vital Signs Temp 98.7 F 04/24/24 11:09 Pulse 76 04/24/24 11:09 BP 108/72 04/24/24 11:09 Pulse Ox 98 04/24/24 11:09 Const General: cooperative, healthy appearing, comfortable, no acute distress and well developed Orientation/consciousness: patient oriented x3 Limitations: no limitations HEENT Head: Yes normal to inspection Ears: hearing grossly normal bilaterally General nose exam: Normal external nose present Face and sinus: Yes normal facial exam Eyes General: appearance normal, both eyes and all related structures Neck Neck: Yes normal visual inspection and Yes full ROM Resp Effort & Inspection: normal respiratory effort and able to speak in complete sentences Auscultation: clear to auscultation bilaterally Cardio Rate: regular rate Rhythm: regular rhythm Heart sounds: normal S1 and S2 GI Inspection: Yes normal to inspection Palpation (GI): Soft to palpation and nontender Skin General skin exam: no rashes or lesions noted Neuro General: patient oriented x3 Cranial nerves: Yes CN's II-XII intact bilaterally Extrem General: Yes normal to inspection Assessment & Plan Assessment & Plan (1) Migraine: Code(s): G43.909 - Migraine, unspecified, not intractable, without status migrainosus Qualifiers: Migraine type: unspecified Status migrainosus presence: without status migrainosus Intractability: not intractable Qualified Code(s): G43.909 - Migraine, unspecified, not intractable, without status migrainosus Plan: Patient's history is diagnostic for migraine headaches. Advised her to follow with PCP for consideration of preventive medication should she wish to proceed versus treatment options for long-term prevention and response to migraines. Advised trial of NSAIDs with food, as well as antiemetics, and meclizine for symptomatic management. Prescription sent to requested pharmacy. Advised patient to take today off rest. Advised follow up with PCP with worsening or failure to resolve. Advised ER with sudden onset of confusion, worse headache of her life. Plan See above for full details and plan. Medications: New ondansetron 4 mg PO Q8H PRN 9 tabs 0RF nausea and vomiting 3 days ibuprofen 600 mg PO Q8H PRN 15 tabs 0RF pain meclizine 12.5 mg PO TID PRN 10 tabs 0RF dizziness Coding Level of Care Code Est Pt Level 3 (98913) Diagnoses Migraine without status migrainosus, not intractable, unspecified migraine type G43.909 Migraine type: unspecified Status migrainosus presence: without status migrainosus Intractability: not intractable
== END 2024-04-24 11:34 | disposition home or self-care (01) ==
PROVIDERS: Visit Provider Registered Nurse
DX: G43.909 Migraine, unspecified, not intractable, without status migrainosus (principal)

== ENCOUNTER → 2024-04-24 11:06 | Outpatient (BNVA) | payer OTHER, SELFPAY | PROVIDERS: Visit Provider Registered Nurse | DX: G43.909 Migraine, unspecified, not intractable, without status migrainosus (principal) | CPT/HCPCS: 99212 ==

== ENCOUNTER 2024-05-14 13:36 | Outpatient (AMB) | payer OTHER, SELFPAY ==
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
[2024-05-14 13:40] VITALS: BP 120/70; PULSE 59; O2SAT 92; BMI 49.0
== END 2024-05-14 14:12 | disposition home or self-care (01) ==
PROVIDERS: PCP Nurse Practitioner Primary Care; Visit Provider Internal Medicine
DX: J45.40 Moderate persistent asthma, uncomplicated (principal); E66.01 Morbid (severe) obesity due to excess calories; Z76.89 Persons encountering health services in other specified circumstances; Z68.42 Body mass index [BMI] 45.0-49.9, adult; K90.9 Intestinal malabsorption, unspecified; R19.7 Diarrhea, unspecified; Z90.49 Acquired absence of other specified parts of digestive tract; M25.562 Pain in left knee; G89.29 Other chronic pain; M54.50 Low back pain, unspecified; E55.9 Vitamin D deficiency, unspecified; Z28.39 Other underimmunization status

== ENCOUNTER → 2024-05-14 13:36 | Outpatient (BNVA) | payer OTHER, SELFPAY | PROVIDERS: PCP Nurse Practitioner Primary Care; Visit Provider Internal Medicine | DX: J45.40 Moderate persistent asthma, uncomplicated (principal); K90.9 Intestinal malabsorption, unspecified; R19.7 Diarrhea, unspecified; E66.01 Morbid (severe) obesity due to excess calories; M25.562 Pain in left knee; G89.29 Other chronic pain; M54.50 Low back pain, unspecified; E55.9 Vitamin D deficiency, unspecified; Z90.49 Acquired absence of other specified parts of digestive tract | CPT/HCPCS: 96127; 99212 ==

== ENCOUNTER 2024-05-29 09:53 | Outpatient (AMB) | payer OTHER, SELFPAY ==
--- NOTE | 2024-05-29 10:05 | MHC.OFFWIV ---
Intake Vital Signs 05/29/24 10:07 Height 5 ft 3 in Weight 275 lb BMI 48.7 BP 130/90 H Blood Pressure Location Rt brachial Position Sitting Pulse 74 Pulse Source Pulse Oximeter Temp 98.1 F Temp Source Oral Pulse Oximetry (%) 98 Oxygen Delivery Method Room Air Intake Visit Reasons: EP coughing, SOB Intake Note: Patient here for cough and SOB since week before Thanksgiving and worsening. Patient Tobacco Use Status: Never used Tobacco Allergies clavulanic acid [Augmentin] Allergy (Unknown, Verified 05/29/24 10:08) Rash gabapentin [From NEURONTIN] Allergy (Unknown, Verified 05/29/24 10:08) HIVES Do you need a note to return to daycare/school/sports/work: Yes HPI EP coughing, SOB HPI Details This note is constructed using voice recognition software. While every effort has been made to ensure accuracy, heat reader errors may have been included. The patient is a 39 year old female who presents to the clinic today with cough and shortness of breath for past 1 month. She reports that she started with an upper respiratory infection, which most of the symptoms have since resolved. She is an asthmatic at baseline, and has been trying to avoid using her nebulizer as it makes her feel shaky. She also reports that she ran out of her controller inhaler 2 days ago. She denies fever, chills, body aches. [facility] Medical History Urinary tract infection Environmental allergies Asthma, mild intermittent, poorly controlled Cervicalgia Bilateral otitis media Post-COVID chronic dyspnea Asthma Surgical History History of cholecystectomy Family History Father Diabetes mellitus type 2 with complications Mother Diabetes mellitus type 2 with complications Other Mental health disorder Substance use disorder Social History Housing: House Alcohol intake: never Patient Tobacco Use Status: Never used Tobacco e-Cigarette/Vaping Use: Never Used Second Hand Smoke Exposure: Yes Current occupational status: employed Cognitive needs: No Hearing needs: No Vision needs: No Review of Systems Const All systems reviewed & are unremarkable except as noted in HPI and below Physical Exam Vital Signs: Last Vital Signs Temp 98.1 F 05/29/24 10:07 Pulse 74 05/29/24 10:07 BP 130/90 H 05/29/24 10:07 Pulse Ox 98 05/29/24 10:07 Oxygen Delivery Method Room Air 05/29/24 10:07 BMI result Body Mass Index 48.7 Const General: cooperative, healthy appearing, comfortable, no acute distress and well developed Orientation/consciousness: patient oriented x3 Limitations: no limitations HEENT Head: Yes normal to inspection Ears: hearing grossly normal bilaterally General nose exam: Normal external nose present Face and sinus: Yes normal facial exam Eyes General: appearance normal, both eyes and all related structures Neck Neck: Yes normal visual inspection and Yes full ROM Resp Effort & Inspection: normal respiratory effort and able to speak in complete sentences Auscultation: rhonchi (And tight. Clears after nebulizer) Cardio Rate: regular rate Rhythm: regular rhythm Heart sounds: normal S1 and S2 Skin General skin exam: no rashes or lesions noted Neuro General: patient oriented x3 Office Procedures Nebulizer Treatment Nebulizer Treatment 18500-Wanfxszqr/MDI RX initial, or Nebulizer Subsequent Treatment Office Meds ipratropium 0.5 mg-albuterol 3 mg (2.5 mg base)/3 mL nebulization soln Performing Provider: Margi Torres NP Performing Location: [facility] Administered by: Margi Torres NP on 05/29/24 10:22 Dose Route Admin Location Dispensed Lot Number Expiration Date [facility] [place] [employer] 3 mL inhalation 3 mL [id number] 08/08/25 40280-602-27 [facility] Assessment & Plan Assessment & Plan (1) Asthma exacerbation: Code(s): J45.901 - Unspecified asthma with (acute) exacerbation Qualifiers: Asthma severity: moderate Asthma persistence: persistent Qualified Code(s): J45.41 - Moderate persistent asthma with (acute) exacerbation Plan: In office nebulizer with improvement in overall symptoms. Refill provided of her controller inhaler, her albuterol, as well as her nebulizer solution. Patient is started on prednisone with taper for symptomatic management. Advised follow up with worsening or failure to resolve with her PCP, or walk-in clinic.. Plan See above for full details and plan. Orders: Orders AMB Nebulizer Treatment Today J45.901 - Unspecified asthma with (acute) exacerbation Medications: New prednisone 5 tablets daily for 2 days, then 4 tablets daily for 2 days, then 3 tablets daily for 2 days, then 2 tablets daily for 2 days, then 1 tablet daily for 2 days. 10 mg PO DIRECTED 30 tabs 0RF Refilled fluticasone furoate-vilanterol 200-25 mcg/dose (Breo Ellipta) 1 inh inhalation Q24H 60 ea 0RF ipratropium-albuterol 0.5 mg-3 mg(2.5 mg base)/3 mL 3 mL inhalation Q4-6H PRN 270 mL 0RF wheezing 30 days J45.909 - Unspecified asthma, uncomplicated albuterol sulfate 90 mcg/actuation (Ventolin HFA) 2 puffs inhalation Q4-6H PRN 8.5 grams 0RF Cough, wheeze 30 days J45.40 - Moderate persistent asthma, uncomplicated Coding Level of Care Code Est Pt Level 4 (81048) Diagnoses Moderate persistent asthma with exacerbation J45.41 Asthma severity: moderate Asthma persistence: persistent CPT Codes Nebulizer Treatment - Nebulizer Treatment, initial or subsequent: [id number]/MDI RX initial, or Nebulizer Subsequent Treatment ([id number])
[2024-05-29 10:07] VITALS: BP 130/90; PULSE 74; TEMP 36.7; O2SAT 98; BMI 48.7
== END 2024-05-29 10:48 | disposition home or self-care (01) ==
PROVIDERS: Visit Provider Registered Nurse
DX: J45.901 Unspecified asthma with (acute) exacerbation (principal); J45.41 Moderate persistent asthma with (acute) exacerbation

== ENCOUNTER → 2024-05-29 09:53 | Outpatient (BNVA) | payer OTHER, SELFPAY | PROVIDERS: Visit Provider Registered Nurse | DX: J45.41 Moderate persistent asthma with (acute) exacerbation (principal) | CPT/HCPCS: 94640; 99212 ==

== ENCOUNTER 2024-09-30 15:44 | Emergency (ER) | payer SELFPAY ==
--- NOTE | ~2024-09-30 | CT_ITS ---
EXAMINATION: CT CERVICAL SPINE WITHOUT CONTRAST CLINICAL INFORMATION: Fall, neck pain. COMPARISON: None available. TECHNIQUE: Spiral CT imaging of the cervical spine performed in axial plane without contrast. Multiplanar reformatted images were constructed from the axial data set. This CT examination was performed using dose optimization techniques as appropriate, variously including the following: *Automated exposure control *Adjustment of mA and/or kV according to patient size (this includes techniques or standardized protocols for targeted exams where dose is matched to indication/reason for exam; i.e. extremities or head) *Use of iterative reconstruction technique FINDINGS: CORONAL ALIGNMENT: -Normal. SAGITTAL ALIGNMENT: -Reversal of the normal lordosis, nonspecific. -No traumatic subluxations. C1-C2 AND CRANIOCERVICAL JUNCTION: -Intact and normally aligned. VERTEBRAL BODIES AND FACETS: -No fracture, compression deformity, traumatic malalignment, or suspicious bone lesion. -Normal facet alignment without facet subluxation. DISCS: -Minimal disc degeneration C5-6. Discs otherwise normal. CENTRAL CANAL: -No evidence of high-grade central canal narrowing or large disc herniation allowing for modality limitations. PREVERTEBRAL AND PARAVERTEBRAL SOFT TISSUES: -No prevertebral or paravertebral soft tissue swelling or edema. No abnormal soft tissue fluid collection. -Normal thyroid. -No masses or abnormal lymph nodes. LUNG APICES: -Clear bilaterally. CT/CT cervical spine wo IV con IMPRESSION: 1. No CT evidence of acute cervical spine fracture or injury. Electronically signed by: Jake Fair MD 09/30/2024 04:51 PM EDT
--- NOTE | ~2024-09-30 | CT_ITS ---
EXAMINATION: CT HEAD WITHOUT CONTRAST CLINICAL INFORMATION: Fall. COMPARISON: None available. TECHNIQUE: Contiguous axial imaging was performed from the skull base to vertex without intravenous administration of contrast. This CT examination was performed using dose optimization techniques as appropriate, variously including the following: *Automated exposure control *Adjustment of mA and/or kV according to patient size (this includes techniques or standardized protocols for targeted exams where dose is matched to indication/reason for exam; i.e. extremities or head) *Use of iterative reconstruction technique [id number] FINDINGS: There is no acute intra-axial, extra-axial bleed, masses or midline shift. There is no acute infarction evolution. There is no edema. The dumont to white matter differentiation is maintained normal. The lateral ventricles are symmetrical in size and configuration without enlargement. No abnormality seen in the posterior fossa. Bone windows reveal no calvarial abnormality. There is no scalp soft tissue abnormality. Bilateral paranasal sinuses and mastoid air cells are well-aerated. CT/CT head/brain wo IV con IMPRESSION: No acute intracranial process seen. Electronically signed by: Niall Marie MD 09/30/2024 04:48 PM EDT
--- NOTE | 2024-09-30 15:51 | ED_ITS ---
HPI - General Adult General Stated complaint: Fall/Hit head, sent from Related Data Previous Rx's ?Medication ?Instructions ?Recorded cholecalciferol (vitamin D3) 25 25 mcg PO DAILY 90 days #90 caps 05/14/24 mcg (1,000 unit) capsule cholestyramine (with sugar) 4 gram 4 g PO BID 90 days #378 grams 05/14/24 oral powder albuterol sulfate 90 mcg/actuation 2 puff inhalation Q4-6H PRN Cough, 05/29/24 aerosol inhaler (Ventolin HFA) wheeze 30 days #8.5 grams fluticasone furoate 200 1 inh inhalation Q24H #60 ea 05/29/24 mcg-vilanterol 25 mcg/dose inhalation powder (Breo Ellipta) ipratropium 0.5 mg-albuterol 3 mg 3 ml inhalation Q4-6H PRN wheezing 05/29/24 (2.5 mg base)/3 mL nebulization 30 days #270 mL soln prednisone 10 mg tablet 10 mg PO DIRECTED #30 tabs 05/29/24 ibuprofen 600 mg tablet 600 mg PO .qd PRN pain 90 days #90 09/24/24 tabs Allergies Allergy/AdvReac Type Severity Reaction Status Date / Time clavulanic acid [Augmentin] Allergy Unknown Rash Verified 05/29/24 10:08 gabapentin [From NEURONTIN] Allergy Unknown HIVES Verified 05/29/24 10:08 PMFSH Past Medical History Medical History Urinary tract infection Environmental allergies Asthma, mild intermittent, poorly controlled Cervicalgia Bilateral otitis media Post-COVID chronic dyspnea Asthma Surgical History History of cholecystectomy Family History Family History Father Diabetes mellitus type 2 with complications Mother Diabetes mellitus type 2 with complications Other Mental health disorder Substance use disorder Social History Social History Housing: House Alcohol intake: never Patient Tobacco Use Status: Never used Tobacco e-Cigarette/Vaping Use: Never Used Second Hand Smoke Exposure: Yes Current occupational status: employed Cognitive needs: No Hearing needs: No Vision needs: No Course Course Course Narrative: RmE: 39 yold female presents to the ED for headache and memorry issues ever s cynthia she fell and hit her head from her a standing laundry bin. Patient states she was standing on a gallo bin trying to grab something from the top of her furniture and she slipped and fell directly into the blunt aspect of her bed would not metal area. Ever since having headache nausea and memory issues. Patient denies having any chest pain or shortness of breath before falling. Patient denies any slurred speech, facial droop, or paralysis of extremities. Patient is sent from urgent care for imaging. Head CT scan cervical spine CT scan ordered. NIH score is 0. Discharge Plan Discharge Prescriptions: No Action ibuprofen 600 mg tablet 600 mg PO .qd PRN (Reason: pain) 90 Days Qty: 90 0RF fluticasone furoate-vilanterol [Breo Ellipta] 200-25 mcg/dose blister with device 1 inh inhalation Q24H Qty: 60 0RF ipratropium-albuterol 0.5 mg-3 mg(2.5 mg base)/3 mL solution for nebulization 3 ml inhalation Q4-6H PRN (Reason: wheezing) 30 Days Qty: 270 0RF albuterol sulfate [Ventolin HFA] 90 mcg/actuation HFA aerosol inhaler 2 puff inhalation Q4-6H PRN (Reason: Cough, wheeze) 30 Days Qty: 8.5 0RF prednisone 10 mg tablet 10 mg PO DIRECTED Qty: 30 0RF Rx Instructions: 5 tablets daily for 2 days, then 4 tablets daily for 2 days, then 3 tablets daily for 2 days, then 2 tablets daily for 2 days, then 1 tablet daily for 2 days. cholecalciferol (vitamin D3) 25 mcg (1,000 unit) capsule 25 mcg PO DAILY 90 Days Qty: 90 1RF cholestyramine (with sugar) 4 gram powder 4 g PO BID 90 Days Qty: 378 0RF Rx Instructions: administer w/meal; avoid other meds within 1hr before or 4-6hr after dose Print Language: Estonian
[2024-09-30 17:07] VITALS: BP 134/86; PULSE 88; RESP 16; TEMP 36.6; O2SAT 98; BMI 50.1
--- NOTE | 2024-09-30 18:58 | ED.GENADULT ---
HPI - General Adult General Chief complaint: Fall Stated complaint: Fall/Hit head, sent from Time Seen by Provider: 09/30/24 19:36 Source: patient Mode of arrival: ambulatory Limitations: no limitations History of Present Illness ED Provider: [place] HPI narrative: 39 yold female presents to the ED for posterior head pain after falling backwards and hitting the back of her head on 4 steps. Patient states this occurred last night. Patient states her daugter ran in front of her unexpectedley while she was carrying her laundry so leaned back to avoid her child which caused her to fall. Patient deneis loss of conscisouness. Patient states also mild posteiror leg pain. patient denies any chest pain, abdominal pain, weakness, or dizziness. Related Data Previous Rx's ?Medication ?Instructions ?Recorded cholecalciferol (vitamin D3) 25 25 mcg PO DAILY 90 days #90 caps 05/14/24 mcg (1,000 unit) capsule cholestyramine (with sugar) 4 gram 4 g PO BID 90 days #378 grams 05/14/24 oral powder albuterol sulfate 90 mcg/actuation 2 puff inhalation Q4-6H PRN Cough, 05/29/24 aerosol inhaler (Ventolin HFA) wheeze 30 days #8.5 grams fluticasone furoate 200 1 inh inhalation Q24H #60 ea 05/29/24 mcg-vilanterol 25 mcg/dose inhalation powder (Breo Ellipta) ipratropium 0.5 mg-albuterol 3 mg 3 ml inhalation Q4-6H PRN wheezing 05/29/24 (2.5 mg base)/3 mL nebulization 30 days #270 mL soln prednisone 10 mg tablet 10 mg PO DIRECTED #30 tabs 05/29/24 ibuprofen 600 mg tablet 600 mg PO .qd PRN pain 90 days #90 09/24/24 tabs Allergies Allergy/AdvReac Type Severity Reaction Status Date / Time clavulanic acid [Augmentin] Allergy Unknown Rash Verified 09/30/24 17:11 gabapentin [From NEURONTIN] Allergy Unknown HIVES Verified 09/30/24 17:11 [facility] Past Medical History Medical History Urinary tract infection Environmental allergies Asthma, mild intermittent, poorly controlled Cervicalgia Bilateral otitis media Post-COVID chronic dyspnea Asthma Surgical History History of cholecystectomy Family History Family History Father Diabetes mellitus type 2 with complications Mother Diabetes mellitus type 2 with complications Other Mental health disorder Substance use disorder Social History Social History Housing: House Alcohol intake: never Patient Tobacco Use Status: Never used Tobacco e-Cigarette/Vaping Use: Never Used Second Hand Smoke Exposure: Yes Advance Directives: No Advance Directives Information Provided: No Current occupational status: employed Cognitive needs: No Hearing needs: No Vision needs: No Physical Exam ED Vital Signs: Vital Signs - 24 hr 09/30/24 17:07 Temperature 97.8 F Pulse Rate 88 Respiratory Rate 16 Blood Pressure 134/86 Pulse Oximetry 98 Oxygen Delivery Method Room Air BMI result Body Mass Index 50.1 Const General: cooperative, healthy appearing, comfortable, no acute distress, well developed, alert, awake and Physically active Orientation/consciousness: patient oriented x3 HENMT Head: Yes normal to inspection, Yes No palpable skull fracture present, Yes normocephalic and Yes atraumatic Ears: hearing grossly normal bilaterally, external ears normal, TM's normal bilaterally, TM normal on the right, TM normal on the left, EAC's normal, mastoids normal and no periauricular adenopathy Throat: Yes posterior oropharynx normal, Yes tonsils normal and Yes uvula midline Eyes General: appearance normal, both eyes and all related structures Neck Neck: Yes normal visual inspection, Yes full ROM, Yes no lymphadenopathy, Yes no meningeal signs, Yes trachea midline, Yes supple, No anterior neck swelling and Yes tender (mild posterior cervical tenderness) Chest Chest palpation & inspection: normal inspection of the chest and normal palpation of entire chest wall Resp Effort & Inspection: normal respiratory effort and able to speak in complete sentences Auscultation: clear to auscultation bilaterally Cardio Jugular venous distension: no JVD Heart sounds: S1 normal heart sound present and S2 normal heart sound present GI Inspection: Yes normal to inspection Palpation (GI): Soft to palpation, not firm, nontender, no guarding and not rigid General: Yes no CVA tenderness Back/Spine/Pelvis Back: no CVA tenderness and No back tenderness Skin General skin exam: no rashes or lesions noted, elasticity normal and turgor normal Neuro General: patient oriented x3, gait normal, tone normal, moves all extremities, Normal light touch and pain sensation, no meningeal signs, no focal motor deficits, CN's II-XI intact bilaterally, normal sensation to monofilament and decrease sensation to monofilament Extrem General: Yes normal to inspection, Yes full ROM and Yes capillary refill normal Ankle/foot/toe images: 1. slight ecchymosis. negative for tenderness, crepitus, erythema, stiffness, deformity, or foreign body. rest of extremity is normal. motor, neuro, and vascular exam is intact. Psych Appearance: grossly normal, well kempt and not disheveled Course Course Course Narrative: RME: 39-year-old female presents to ED for posterior head pain after hitting the back of her head unto stairs due to slipping and fallin on stairs. patient states her duaghter ran in front of her suddenly which caused her to fall. head CT scan anad cervical exam ordered Medical Decision Making Medical Decision Making MDM Narrative: 39 yold female presents to the ED for posteior headache since last night after hitting back of head on stairs. Patient's daughter ran in front of her suddently causing patient's slipped back and fell onto her head. Patient also states slight posterior leg bruising, but has no pain in the area. no need for xray. Patient denies any nausea or vomiting. Patient denies any abdominal pain chest pain shortness of breath. Patient explained worrisome signs and informed to return to the ED immediately. not suspecting compartment syndrome, fracture, DVT, pnuemothrorax, hemothorax, aterial occlusion, intra pulmonary/abdominal traumatic injury, or any life threatening etiology. Differential Diagnosis Differential Diagnoses: The differential diagnosis associated with the presentation includes (brain bleed, cervical spine fracture, dislocation) Admission/Observation Consideration of admission/observation: Escalation of care including admission/observation considered Independent Interpretation I performed an independent interpretation of an: CT Scan Radiology Impression Discussion of test interpretation with radiology: I have reviewed the radiologist's reading. Prescription Management I considered prescription management with: Pain Medication Discharge Plan Discharge Clinical Impression: Head injury Patient Disposition: Home, Self-Care Instructions: Head Injury (ED) Additional Instructions: Images came back normal and negative for any signs of brain bleed or neck fracture. Return to the ED immediately for any headache, dizziness, nausea, vomiting, bluish discoloration, increased swelling of lower extremity, fever, chills, chest pain, shortness of breath, abdominal pain, bloody urine, blood in stool, or any other concerning symptoms. Continue taking your alleve you have at home for pain. Recommend follow up with primary care provider. Prescriptions: No Action ibuprofen 600 mg tablet 600 mg PO .qd PRN (Reason: pain) 90 Days Qty: 90 0RF fluticasone furoate-vilanterol [Breo Ellipta] 200-25 mcg/dose blister with device 1 inh inhalation Q24H Qty: 60 0RF ipratropium-albuterol 0.5 mg-3 mg(2.5 mg base)/3 mL solution for nebulization 3 ml inhalation Q4-6H PRN (Reason: wheezing) 30 Days Qty: 270 0RF albuterol sulfate [Ventolin HFA] 90 mcg/actuation HFA aerosol inhaler 2 puff inhalation Q4-6H PRN (Reason: Cough, wheeze) 30 Days Qty: 8.5 0RF prednisone 10 mg tablet 10 mg PO DIRECTED Qty: 30 0RF Rx Instructions: 5 tablets daily for 2 days, then 4 tablets daily for 2 days, then 3 tablets daily for 2 days, then 2 tablets daily for 2 days, then 1 tablet daily for 2 days. cholecalciferol (vitamin D3) 25 mcg (1,000 unit) capsule 25 mcg PO DAILY 90 Days Qty: 90 1RF cholestyramine (with sugar) 4 gram powder 4 g PO BID 90 Days Qty: 378 0RF Rx Instructions: administer w/meal; avoid other meds within 1hr before or 4-6hr after dose Referrals: Jinny Duggan MD [Primary Care Provider] - (Fall.) Stand Alone Forms: Work/School Release Interventions: ED Discharge Assessment Last Done: 09/30/24 20:03 Discharge Date/Time: 09/30/24 20:32 Print Language: Spanish
[2024-09-30 20:03] VITALS: BP 134/86; PULSE 88; RESP 16; TEMP 36.6; O2SAT 98
== END 2024-09-30 20:32 | disposition home or self-care (01) ==
PROVIDERS: Emergency Provider Emergency Medicine; PCP Internal Medicine
DX: S09.90XA Unspecified injury of head, initial encounter (principal); R51.9 Headache, unspecified; M54.2 Cervicalgia; W10.9XXA Fall (on) (from) unspecified stairs and steps, initial encounter; Y93.9 Activity, unspecified; Y92.9 Unspecified place or not applicable; Y99.8 Other external cause status
CPT/HCPCS: 70450; 72125; 99282; 99284

== ENCOUNTER → 2024-09-30 15:50 | Outpatient (BNV) | payer SELFPAY | PROVIDERS: PCP Internal Medicine; Visit Provider Radiology Diagnostic Radiology | DX: M54.2 Cervicalgia (principal); S09.90XA Unspecified injury of head, initial encounter; W19.XXXA Unspecified fall, initial encounter | CPT/HCPCS: 70450; 72125 ==